=== PATIENT | female | born 1950 | race Caucasian/White ===

== ENCOUNTER 2019-12-23 13:56 | Outpatient (CLI) | payer OTHER, MEDICAID, SELFPAY ==
--- NOTE | 2019-12-23 14:24 | MM_ITS ---
WS: [id number] SCREENING DIGITAL MAMMOGRAM WITH CAD HISTORY: SCREENING COMPARISON: None available. Bilateral CC and MLO views submitted. Computer aided detection analyzed. Breast composition: The breasts are heterogeneously dense, which may obscure small masses. 6 mm asymm etry in the lateral LEFT breast posteriorly. Not definitely seen on the CC projection. There is an ad ditional area of asymmetry and increased density in the medial inferior breast. RIGHT breast is negat li. LEFT breast: Spot compression views (CC and MLO). True ML. Ultrasound to follow if abnormality persis ts. Spot compression views in the medial and lateral LEFT breast and in the inferior posterior LEFT b [place]ast. MM/[id number] IMPRESSION: BI-RADS: 0-Incomplete: Need additional imaging evaluation FOLLOW UP: Need Additional Imaging
--- NOTE | 2019-12-23 15:10 | XR_ITS ---
WS: [id number] SCREENING DEXA SCAN [facility] CLINICAL INFORMATION: POSTMENOPAUSAL STATE COMPARISON: None. FINDINGS: The L1-L4 bone mineral density measures 0.980 g/cm2. This corresponds to a T score score of -1.7 and Z score of -1.2. Left femoral neck bone mineral density measures 0.779 g/cm2. This corresponds to a T score of -1.8 an d Z score of -1.3. Right femoral neck bone mineral density measures 0.781 g/cm2. This corresponds to a T score -1.8of an d Z score of -1.3. Mean femoral neck bone mineral density measures 0.780 g/cm2. This corresponds to a T score of -1.8 an d Z score of -1.3. XR/XR DEXA axial skeleton* [id number] IMPRESSION: Osteopenia Patient's FRAX calculated 10 year probability for major osteoporotic fracture i s 11.3 % and osteoporotic hip fracture is 2.0%.
== END 2019-12-23 13:57 | disposition home or self-care (01) ==
LOC: RADSHAW 14:10
PROVIDERS: PCP Nurse Practitioner Family; Visit Provider Nurse Practitioner Family
DX: Z12.31 Encounter for screening mammogram for malignant neoplasm of breast (principal); Z78.0 Asymptomatic menopausal state
CPT/HCPCS: 77067; 77080

== ENCOUNTER 2020-11-21 14:18 | Outpatient (CLI) | payer MEDICARE, MEDICAID, SELFPAY ==
--- NOTE | 2020-11-21 14:30 | CT_ITS ---
WS: [id number] CT HEAD TECHNIQUE: Noncontrast CT of the head obtained from the skullbase to the vertex. CLINICAL INFORMATION: TREMORS OF NERVOUS SYSTEM COMPARISON: None. DLP: 992.[address] scans at [facility] use at least one of these dose optimization techniques: automat ed exposure control; mA and/or kV adjustment per patient size (includes targeted exams where dose is matched to clinical indication); or iterative reconstruction. FINDINGS: No evidence of intracranial hemorrhage or mass effect. Ventricular system and basal cisterns are turner nt. Mild small vessel changes with mild parenchymal volume loss. No extra-axial fluid collections. No evidence of mass or mass effect. Normal caban-white differentiation. Paranasal sinuses and mastoid air cells are well aerated. .Normal visualized soft tissues. CT/CT head wo con* [id number] IMPRESSION: 1. No evidence of intracranial hemorrhage or mass effect. 2. Mild small vessel changes. Mild parenchymal volume loss. 3. No acute intracranial findings.
== END 2020-11-21 14:19 | disposition home or self-care (01) ==
PROVIDERS: PCP Nurse Practitioner Family; Visit Provider Nurse Practitioner Family
DX: R25.1 Tremor, unspecified (principal)
CPT/HCPCS: 70450

== ENCOUNTER 2021-05-25 13:35 | Outpatient (CLI) | payer MEDICARE, MEDICAID, SELFPAY ==
--- NOTE | 2021-05-25 13:41 | XR_ITS ---
WS: [id number] KNEE LEFT TECHNIQUE: 2 views of the left knee CLINICAL INFORMATION: PAIN IN LEFT KNEE COMPARISON: None. FINDINGS: Mild tricompartmental arthritis. Hypertrophic patella. Soft tissue edema. Small suprapatellar effusio n. No acute fractures. XR/XR knee LT 1-2V [id number] IMPRESSION: Mild tricompartmental arthritis with soft tissue edema and a small suprapatella r effusion. Kellgren-Mariano Classification: grade 2 (minimal): definite osteophytes and p ossible joint space narrowing
== END 2021-05-25 13:36 | disposition home or self-care (01) ==
PROVIDERS: PCP Nurse Practitioner Family; Visit Provider Nurse Practitioner Family
DX: R60.0 Localized edema (principal); M13.862 Other specified arthritis, left knee
CPT/HCPCS: 73560

== ENCOUNTER 2021-07-05 13:14 | Outpatient (CLI) | payer MEDICARE, MEDICAID, SELFPAY ==
--- NOTE | 2021-07-05 13:18 | MM_ITS ---
WS: [id number] BILATERAL SCREENING DIGITAL MAMMOGRAM WITH CAD HISTORY: SCREENING COMPARISON: 12/23/2019 Bilateral CC and MLO views submitted. Computer aided detection analyzed. Breast composition: The breasts are heterogeneously dense, which may obscure small masses. No suspici ous masses, microcalcifications or architectural distortion. Scattered benign calcifications in each breast. MM/[id number] IMPRESSION: BI-RADS: 2-Benign FOLLOW UP: 1 Year Follow-up
== END 2021-07-05 13:15 | disposition home or self-care (01) ==
LOC: RADSHAW 13:17
PROVIDERS: PCP Nurse Practitioner Family; Visit Provider Nurse Practitioner Family
DX: Z12.31 Encounter for screening mammogram for malignant neoplasm of breast (principal)
CPT/HCPCS: 77067

== ENCOUNTER 2021-07-17 13:26 | Outpatient (RCR) | payer MEDICARE, MEDICAID, SELFPAY | END 2021-07-20 23:59 | disposition home or self-care (01) | LOC: SPT 13:26 | PROVIDERS: PCP Nurse Practitioner Family; Referring Provider Orthopaedic Surgery; Visit Provider Orthopaedic Surgery | DX: M17.12 Unilateral primary osteoarthritis, left knee (principal) | CPT/HCPCS: 97110; 97161 ==

== ENCOUNTER 2021-07-21 06:00 | Outpatient (RCR) | payer MEDICARE, MEDICAID, SELFPAY | END 2021-08-20 23:59 | disposition home or self-care (01) | LOC: SPT 06:00 | PROVIDERS: PCP Nurse Practitioner Family; Visit Provider Orthopaedic Surgery | DX: M17.12 Unilateral primary osteoarthritis, left knee (principal) | CPT/HCPCS: 97110 ==

== ENCOUNTER 2021-08-29 07:32 | Outpatient (CLI) | payer MEDICARE, MEDICAID, SELFPAY ==
[2021-08-29 08:27] LABS: Glucose Fasting 108 mg/dL (74-106)
[2021-08-29 10:12] LABS: Glucose 1 Hour 218 mg/dL
[2021-08-29 10:54] LABS: Glucose 2 Hour 230 mg/dL
[2021-08-29 11:56] LABS: Glucose 3 Hour 118 mg/dL
== END 2021-08-29 07:33 | disposition home or self-care (01) ==
LOC: LAB 07:37
PROVIDERS: PCP Nurse Practitioner Family; Visit Provider Nurse Practitioner Family
DX: R25.1 Tremor, unspecified (principal)
CPT/HCPCS: 36415; 82951; 82952

== ENCOUNTER 2021-11-19 11:59 | Emergency (ER) | payer MEDICARE, MEDICAID, SELFPAY ==
[2021-11-19 12:07] VITALS: BP 144/79; PULSE 89; RESP 20; TEMP 37.6; O2SAT 95; BMI 36.0
--- NOTE | 2021-11-19 12:21 | W.ED.COVID ---
Documented by User: OSMIN Frost 11/19/21 12:26 HPI - COVID General: Chief Complaint: COVID symptoms Stated Complaint: flu like symptoms Time Seen by Provider: 11/19/21 12:12 Triage information: Has fever, cough or shortness of breath. No known COVID + exposure last 14 days History of Present Illness: Patient with Covid-like symptoms. With chills last night dry cough. Slight headache. Denies any nausea vomiting diarrhea. States she said is hard to determine whether she lost taste or smell. Patient has not been vaccinated. MD complaint: has COVID symptoms COVID 19 common symptoms: positive chills, non-productive cough, body aches, headache(s) and nausea; negative throat pain COVID 19 other sytmptoms: negative chest pain Onset (ago): hour(s) COVID Results: SARS-CoV-2 RNA (RT-PCR) Pending 11/19/21 12:20 11/19/21 Review of Systems Const: Reports: chills and body aches Eyes: Denies: eye discomfort ENMT: Denies: throat pain Card: Reports: dyspnea on exertion; Denies: chest pain Resp: Reports: non-productive cough GI: Reports: nausea; Denies: abdominal pain Skin/Breast: Denies: rash Neuro: Reports: headache(s) Psych: Denies: depression or suicidal ideation Physical Exam Const: COMMON NORMALS: no acute distress, patient oriented x3 and alert HENMT: COMMON NORMALS: normocephalic HEAD & SCALP: normocephalic Eye: COMMON NORMALS: EOMs intact bilaterally Neck/C-Spine: COMMON NORMALS: no JVD Resp: COMMON NORMALS: normal respiratory effort, No use of accessory muscles and clear to auscultation bilaterally AUSCULTATION: clear to auscultation bilaterally Cardio: COMMON NORMALS: no JVD GI: INSPECTION: Yes normal to inspection Extremity: COMMON NORMALS: normal to inspection and full ROM Neuro: COMMON NORMALS: patient oriented x3 SENSORIUM/ORIENTATION: Yes alert Psych: COMMON NORMALS: mental status grossly normal Skin: COMMON NORMALS: no rashes or lesions noted GENERAL SKIN EXAM: no rashes or lesions noted Course Vital Signs: Vital signs: Vital Signs Temperature 99.7 F H 11/19/21 12:47 Pulse Rate 89 11/19/21 12:47 Respiratory Rate 20 H 11/19/21 12:47 Blood Pressure 144/79 11/19/21 12:47 Pulse Oximetry 95 11/19/21 12:47 MDM - COVID Medical Decision Making Patient presents with COVID-like symptoms that started last night. Patient complained about muscle aches and chills and dry cough and nausea. patient denies any other symptoms. Patient is unvaccinated. Testing was obtained and patient will be notified results at a later time. Patient is in no acute distress and vital signs are stable. Lab Data Laboratory Results Influenza Type A Ag Negative (Negative) 11/19/21 12:20 Influenza Type B Ag Negative (Negative) 11/19/21 12:20 SARS-CoV-2 RNA (RT-PCR) Pending 11/19/21 12:20 11/19/21 Discharge Plan Discharge Patient Disposition: Home Clinical Impression: Suspected severe acute respiratory syndrome coronavirus 2 (SARS-CoV-2) infection Condition: Stable Prescriptions: New Decadron 6 mg tablet 6 mg PO DAILY Qty: 7 0RF Zofran 4 mg tablet 4 mg PO Q8H 3 Days Qty: 9 0RF No Action hydrochlorothiazide 25 mg tablet 25 mg PO DAILY 0RF hydroxyzine HCl 10 mg tablet 10 mg PO TID PRN0RF omeprazole 40 mg capsule,delayed release(DR/EC) 40 mg PO DAILY 0RF Discharge Orders: Discharge ED (Routine); Ordered 11/19/21 Ordered By: Mukesh Hanks Referrals: Fermín,ALEJANDRA SamsonP [Primary Care Provider] - Discharge Diet: Advance as tolerated Discharge Activity: Increase activity as tolerated Patient Instructions: COVID-19 (Coronavirus Disease 2019) (ED) Activity Restrictions/Additional Instructions: Follow-up with medical provider as directed. Take medications as prescribed. Return to the ER or your medical provider if condition worsens. Please read and understand discharge instructions. If any questions ask please. Check pulse oximeter on a regular basis make sure your oxygen level stayed above 90% consistently. If they drop below 90% consistently please return to the ER or follow-up your primary care provider. Make sure you drink water consistently for any possible dehydration. Symptoms with Covid can persist up to 14 to 21 days. We encourage Covid vaccination. Coding Level of Care Code ED Internal Communications Manager for Chg Fwd Exam Comprehensive Documented by User: Clay Sanchez MD 11/20/21 12:58 HPI - COVID General: Chief Complaint: COVID symptoms Stated Complaint: flu like symptoms Time Seen by Provider: 11/19/21 12:12 COVID Results: SARS-CoV-2 RNA (RT-PCR) Pending 11/19/21 12:20 11/19/21 Course Vital Signs: Vital signs: Vital Signs Temperature 99.7 F H 11/19/21 12:47 Pulse Rate 89 11/19/21 12:47 Respiratory Rate 20 H 11/19/21 12:47 Blood Pressure 144/79 11/19/21 12:47 Pulse Oximetry 95 11/19/21 12:47 MDM - COVID Medical Decision Making Patient presents with COVID-like symptoms that started last night. Patient complained about muscle aches and chills and dry cough and nausea. patient denies any other symptoms. Patient is unvaccinated. Testing was obtained and patient will be notified results at a later time. Patient is in no acute distress and vital signs are stable. I have reviewed this documentation by Mukesh Hanks NP. Clay Sanchez MD Emergency Medicine Lab Data Laboratory Results Influenza Type A Ag Negative (Negative) 11/19/21 12:20 Influenza Type B Ag Negative (Negative) 11/19/21 12:20 SARS-CoV-2 RNA (RT-PCR) Pending 11/19/21 12:20 11/19/21 Discharge Plan Discharge Patient Disposition: Home Clinical Impression: Suspected severe acute respiratory syndrome coronavirus 2 (SARS-CoV-2) infection Condition: Stable Prescriptions: New Decadron 6 mg tablet 6 mg PO DAILY Qty: 7 0RF Zofran 4 mg tablet 4 mg PO Q8H 3 Days Qty: 9 0RF No Action hydrochlorothiazide 25 mg tablet 25 mg PO DAILY 0RF hydroxyzine HCl 10 mg tablet 10 mg PO TID PRN0RF omeprazole 40 mg capsule,delayed release(DR/EC) 40 mg PO DAILY 0RF Discharge Orders: Discharge ED (Routine); Ordered 11/19/21 Ordered By: Mukesh Hanks Referrals: Mali Kovacs FNP [Primary Care Provider] - Discharge Diet: Advance as tolerated Discharge Activity: Increase activity as tolerated Patient Instructions: COVID-19 (Coronavirus Disease 2019) (ED) Activity Restrictions/Additional Instructions: Follow-up with medical provider as directed. Take medications as prescribed. Return to the ER or your medical provider if condition worsens. Please read and understand discharge instructions. If any questions ask please. Check pulse oximeter on a regular basis make sure your oxygen level stayed above 90% consistently. If they drop below 90% consistently please return to the ER or follow-up your primary care provider. Make sure you drink water consistently for any possible dehydration. Symptoms with Covid can persist up to 14 to 21 days. We encourage Covid vaccination. Coding Level of Care Code ED Internal Communications Manager for Fredis Fwd Exam Comprehensive
[2021-11-19 12:47] VITALS: BP 144/79; PULSE 89; RESP 20; TEMP 37.6; O2SAT 95
[2021-11-19 13:12] LABS: Influenza A by IFA Negative (Negative); Influenza B by IFA Negative (Negative)
[2021-11-21 11:57] LABS: Quest SARS-CoV-2 RNA DETECTED (NOT DETECTED)
--- NOTE | 2021-11-22 14:19 | PC.NURSE ---
Notified of (+) COVID
== END 2021-11-19 12:49 | disposition home or self-care (01) ==
LOC: ER 14:05
PROVIDERS: Emergency Provider Nurse Practitioner Family; PCP Nurse Practitioner Family
DX: U07.1 COVID-19 (principal)
CPT/HCPCS: 87635; 87804; 99281

== ENCOUNTER 2021-11-27 12:06 | Inpatient (IN) | payer MEDICARE, MEDICAID, SELFPAY ==
[2021-11-27] VITALS (10 sets, daily range): BP systolic 119–162; BP diastolic 67–111; PULSE 66–84; RESP 17–22; TEMP 36.9–38.8; O2SAT 89–96; BMI 34.4
--- NOTE | 2021-11-27 12:14 | ED_ITS ---
HPI - COVID General: Chief Complaint: COVID symptoms Stated Complaint: SOB, WEAKNESS Time Seen by Provider: 11/27/21 12:06 Source: patient Mode of arrival: EMS Triage information: Has fever, cough or shortness of breath . Exposure to COVID + person last 14 days History of Present Illness: 71-year-old female presents to the emergency room complaining of severe shortness of breath. Patient has a positive Covid test 9 days ago. She has had progressively worsening shortness of breath myalgias hea dache sore throat. At home on arrival EMS found her O2 sat to be 83% on room air. Patient is conversationally dyspneic in exam room. She denies any chest or abdominal pain she has had some loose stools but that is mostly resolved. MD complaint: known COVID positive COVID 19 common symptoms: positive fever(s), chills, cough, non-productive cough, dyspnea, fatigue, body aches, headache(s), throat pain, nasal congestion and diarrhea COVID 19 other sytmptoms: positive requiring oxygen; negative chest pain Onset (ago): day(s) (9) Severity: severe Pertinent comorbid conditions: hypertension and obesity Treatment prior to arrival: acetaminophen COVID Results: SARS-CoV-2 RNA (RT-PCR) Detected (NOT DETECTED) A 11/19/21 12:20 11/19/21 Review of Systems Const: Reports: fever(s), chills, body aches and fatigue ENMT: Reports: throat pain and nasal congestion Card: Reports: dyspnea on exertion; Denies: chest pain, edema or orthopnea Resp: Reports: dyspnea, non-productive cough and chest congestion GI: Reports: diarrhea : Denies: flank pain, difficulty voiding, dysuria, urinary frequency or urinary urgency Skin/Breast: Denies: rash or pruritus Neuro: Reports: headache(s) PFSH ED PFSH: Medical History Anxiety Edema prescribed HCTZ GERD (gastroesophageal reflux disease) 4 para 4 Surgical History History of hysterectomy Family History Denies family history of CAD (coronary artery disease) Stroke Social History Smoking and tobacco status: never smoked Alcohol intake: never Substance/Drug Use: never Lives independently: Yes Physical Exam Const: GENERAL APPEARANCE: cooperative and comfortable ORIENTATION/CONSCIOUSNESS: Yes awake, Yes oriented to person, Yes oriented to place and Yes oriented to time HENMT: COMMON NORMALS: normocephalic, atraumatic, hearing grossly normal bilaterally, external ears normal, EAC's normal, TM's normal bilaterally, Normal nasal mucous membranes and turbinates present, moist oral mucous membranes and oropharynx normal HEAD & SCALP: normocephalic and atraumatic NOSE: Normal nasal mucous membranes and turbinates present EXTERNAL EAR: Yes external ears normal EXTERNAL AUDITORY CANAL: EAC's normal TYMPANIC MEMBRANE: TM's normal bilaterally Neck/C-Spine: COMMON NORMALS: no JVD Resp: EFFORT & INSPECTION: Yes labored AUSCULTATION: crackles, wheezes and diminished lung sounds Cardio: COMMON NORMALS: no JVD, regular rate, regular rhythm and No murmurs present (Cardio) RATE: regular rate RHYTHM: regular rhythm GI: COMMON NORMALS: Soft to palpation and No hepatosplenomegaly present AUSCULTATION: Yes normoactive bowel sounds PALPATION: Yes Soft to palpation, No Tenderness to palpation present (GI), No Guarding due to palpation present (GI) and Yes No hepatosplenomegaly present Extremity: COMMON NORMALS: normal to inspection, capillary refill normal, no clubbing, cyanosis or edema, no calf tenderness and no pedal edema Neuro: SENSORIUM/ORIENTATION: Yes oriented to person, Yes oriented to place and Yes oriented to time Skin: COMMON NORMALS: no rashes or lesions noted GENERAL SKIN EXAM: no rashes or lesions noted Course Vital Signs: Vital signs: Vital Signs Temperature 99.1 F 11/28/21 07:13 Pulse Rate 65 11/28/21 07:13 Respiratory Rate 18 11/28/21 07:13 Blood Pressure 114/66 11/28/21 07:13 Pulse Oximetry 89 L 11/28/21 07:13 [facility] - COVID Medical Decision Making Acute respiratory failure with hypoxia secondary to Covid pneumonitis. Labs reviewed discussed with hospitalist will admit remdesivir and dexamethasone started oxygen support. Patient initially was on 6 L for the time we are making arrangements for her admission her oxygen sat was hovering below 90 and she was changed to heated high flow oxygen Medical Records I reviewed the patient's medical records. Lab Data I reviewed the patient's lab results. : 11/28/21 04:23 11/28/21 04:23 Radiology Impressions Chest X-Ray 11/27/21 12:52 IMPRESSION: 1. Increased from a bilateral peripheral opacifications. New since 2012. Differential includes chronic interstitial lung disease and pneumonitis. If patient is positive for Covid 19 this may be due to Covid pneumonia. 2. Mild atherosclerosis aorta. Chest CTA 11/27/21 19:14 IMPRESSION: 1. No pulmonary embolus. 2. Commonly reported imaging features of (COVID-19) pneumonia are present. Other processes such as influenza pneumonia and organizing pneumonia, as can be seen with drug toxicity and connective tissue disease, can cause a similar imaging pattern. Laboratory Results WBC 4.7 10^3/uL (4.0-10.0) 11/27/21 12:47 RBC 4.79 10^6/uL (4.1-5.3) 11/27/21 12:47 Hgb 14.6 g/dL (11.5-15.3) 11/27/21 12:47 Hct 44.0 % (37.0-47.0) 11/27/21 12:47 MCV 91.9 fl (81-99) 11/27/21 12:47 MCH 30.5 pg (28.0-34.0) 11/27/21 12:47 MCHC 33.2 g/dL (30.0-36.0) 11/27/21 12:47 RDW 13.2 % (12.1-15.1) 11/27/21 12:47 Plt Count 170 10^3/cmm (130-400) 11/27/21 12:47 MPV 10.3 fL (7.4-10.4) 11/27/21 12:47 Neut % (Auto) 49.0 % 11/27/21 12:47 Lymph % (Auto) 30.6 % 11/27/21 12:47 Fleming % (Auto) 19.1 % 11/27/21 12:47 Eos % (Auto) 0.0 % 11/27/21 12:47 Baso % (Auto) 0.2 % 11/27/21 12:47 Neut # (Auto) 2.29 10^3/uL (1.8-7.7) 11/27/21 12:47 Lymph # (Auto) 1.4 10^3/uL (0.8-4.8) 11/27/21 12:47 Fleming # (Auto) 0.9 10^3/uL (0.2-0.9) 11/27/21 12:47 Eos # (Auto) 0.0 10^3/uL (0.0-0.8) 11/27/21 12:47 Baso # (Auto) 0.0 10^3/uL (0.0-0.1) 11/27/21 12:47 Nucleated RBC % (auto) 0 % 11/27/21 12:47 Nucleated RBCs # 0.0 /100WBC 11/27/21 12:47 PT 14.30 SECONDS (12.1-14.9) 11/27/21 13:13 INR 1.08 (0.8-1.2) 11/27/21 13:13 D-Dimer 0.89 ug/mIFEU (0-0.59) H 11/27/21 13:13 Specimen Type Arterial 11/27/21 13:25 Sample Site Radial, left 11/27/21 13:25 ABG pH 7.46 (7.35-7.45) H 11/27/21 13:25 ABG pCO2 33.1 mmHg (35-45) L 11/27/21 13:25 ABG pO2 60.7 mmHg (80.0-100.0) L 11/27/21 13:25 ABG HCO3 23.7 mmol/L (22-26) 11/27/21 13:25 ABG Base Excess 0.6 mmol/L (-2.0-2.0) 11/27/21 13:25 Oli Test Pos 11/27/21 13:25 Hematocrit 46.6 % (37-47) 11/27/21 13:25 O2 Delivery Device Nc 11/27/21 13:25 O2 Liters/Min 6.0 % 11/27/21 13:25 FiO2 44.0 % 11/27/21 13:25 Microsoft Architect ID Ed 11/27/21 13:25 Sodium 128 mmol/L (136-145) L 11/27/21 12:47 Potassium 3.9 mmol/L (3.5-5.1) 11/27/21 12:47 Chloride 95 mmol/L (98-107) L 11/27/21 12:47 Carbon Dioxide 21 mmol/L (22-29) L 11/27/21 12:47 Anion Gap 15.9 (5-19) 11/27/21 12:47 BUN 9 mg/dL (8-23) 11/27/21 12:47 Creatinine 0.7 mg/dL (0.5-0.9) 11/27/21 12:47 GFR Calculation 83.0 mL/min (90-130) L 11/27/21 12:47 Glucose 109 mg/dL (65-115) 11/27/21 12:47 Calculated Osmolality 265 mOsm/kg (285-295) L 11/27/21 12:47 Lactic Acid 1.3 mmol/L (0.5-2.2) 11/27/21 13:13 Calcium 6.9 mg/dL (8.5-10.5) L 11/27/21 12:47 Ferritin 920 ng/mL (15-150) H 11/27/21 12:47 Total Bilirubin 0.8 mg/dL (0.15-1.2) 11/27/21 12:47 AST 72 U/L (0-32) H 11/27/21 12:47 ALT 39 U/L (0-33) H 11/27/21 12:47 Alkaline Phosphatase 40 IU/L (35-105) 11/27/21 12:47 Creatine Kinase 51 U/L (26-192) 11/27/21 12:47 Troponin T Gen 5 ng/L 11 ng/L (0-10) H 11/27/21 12:47 C-Reactive Protein 57.9 mg/L (0.0-4.9) H 11/27/21 12:47 NT-Pro-B Natriuret Pep 287 pg/mL (0-125) H 11/27/21 12:47 Total Protein 5.4 g/dL (6.6-8.7) L 11/27/21 12:47 Albumin 2.9 g/dL (3.5-5.2) L 11/27/21 12:47 Globulin 2.5 g/dL (1.3-4.6) 11/27/21 12:47 Procalcitonin 0.22 ng/mL (0-0.5) 11/27/21 12:47 SARS-CoV-2 RNA (RT-PCR) Detected (NOT DETECTED) A 11/19/21 12:20 11/19/21 Discharge Plan Discharge Patient Disposition: Admitted As Inpatient Admit Provider: Kacie Rosado Clinical Impression: Pneumonia due to COVID-19 virus, Acute respiratory failure with hypoxia Condition: Stable Coding Level of Care Code ED Lithographic Stripper for Fredis Garza
--- NOTE | 2021-11-27 12:52 | ECG_ITS ---
[facility] Test Date: 2021-11-27 Pat Name: Peggy Villalobos Department: Room: Gender: Female Medical Registrar: : 1950 Requested By: Ren Wong Order Number: [id number] Beba MD: Jenn Santillan M.D. Measurements Intervals Yarnell Rate: 81 P: 49 SC: 145 QRS: -33 QRSD: 102 T: -11 QT: 379 QTc: 440 Interpretive Statements SINUS RHYTHM LEFT AXIS DEVIATION [QRS AXIS < -30] PATTERN CONSISTENT WITH PULMONARY DISEASE MODERATE T-WAVE ABNORMALITY, CONSIDER ANTERIOR ISCHEMIA [-0.1+ mV T-WAVE IN V3/V4] No previous ECG available for comparison Electronically Signed On 11-28-2021 5:09:29 TREATING MACHINE OPERATOR by Jenn Santillan M.D. [id number] f
--- NOTE | 2021-11-27 12:52 | XR_ITS ---
WS: [id number] PORTABLE CHEST HISTORY: hypoxia COMPARISON: 07/13/2013 Bilateral areas of interstitial thickening and increased opacification. Most significant on the LEFT. No pleural effusion or pneumothorax. Cardiac size: Normal. Mediastinum/Aorta: Mild atherosclerosis aorta. No osseous abnormality seen. XR/XR chest 1V portable [id number] IMPRESSION: 1. Increased from a bilateral peripheral opacifications. New since 2012. Diffe rential includes chronic interstitial lung disease and pneumonitis. If patient is positive for Covid 19 this may be due to Covid pneumonia. 2. Mild atherosclerosis aorta.
[2021-11-27] MEDS: dexamethasone 4 mg/mL INJ 6 MG IVP (13:02)
[2021-11-27 13:34] LABS: ABG PCO2 33.1 mmHg (35-45); ABG PH Result 7.46 (7.35-7.45); Arterial Blood Gas Hematocrit 46.6 % (37-47); Base Excess ABG 0.6 mmol/L (-2.0-2.0); Blood Gas Allen Test Pos; Blood Gas Sample Type Arterial; HCO3 ABG 23.7 mmol/L (22-26); PO2 ABG 60.7 mmHg (80.0-100.0)
[2021-11-27 13:35] LABS: Blood Gas Operator Identificat ED; Blood Gas Sample Site Radial, left; Oxygen Device NC
[2021-11-27 13:40] LABS: D Dimer 0.89 ug/mIFEU (0-0.59)
[2021-11-27 13:42] LABS: Lactic Sepsis W/Reflex 1.3 mmol/L (0.5-2.2)
[2021-11-27 13:43] LABS: Basophils % 0.2 %; Hemoglobin 14.6 g/dL (11.5-15.3); Lymphocytes # 1.4 10^3/uL (0.8-4.8); Lymphocytes % 30.6 %; Mean Corpuscular HGB Conc 33.2 g/dL (30.0-36.0); Mean Corpuscular Hemoglobin 30.5 pg (28.0-34.0); Mean Corpuscular Volume 91.9 fl (81-99); Mean Platelet Volume 10.3 fL (7.4-10.4); Monocytes # 0.9 10^3/uL (0.2-0.9); Monocytes % 19.1 %; Neutrophils # 2.29 10^3/uL (1.8-7.7); Nucleated Red Blood Cells % 0 %; Platelet Count 170 10^3/cmm (130-400); Red Blood Count 4.79 10^6/uL (4.1-5.3); Red Cell Distribution Width 13.2 % (12.1-15.1); White Blood Count 4.7 10^3/uL (4.0-10.0)
[2021-11-27] MEDS: remdesivir 200 MG in sodium chloride 0.9% (100 ml) 60 ML 100 MG IV (13:58)
[2021-11-27 14:05] LABS: Alanine Aminotransferase 39 U/L (0-33); Albumin Level 2.9 g/dL (3.5-5.2); Alkaline Phosphatase 40 IU/L (35-105); Aspartate Amino Transferase 72 U/L (0-32); Blood Urea Nitrogen 9 mg/dL (8-23); C Reactive Protein 57.9 mg/L (0.0-4.9); Calcium 6.9 mg/dL (8.5-10.5); Carbon Dioxide 21 mmol/L (22-29); Chloride 95 mmol/L (98-107); Globulin 2.5 g/dL (1.3-4.6); Glucose 109 mg/dL (65-115); Osmolality Calculated 265 mOsm/kg (285-295); Sodium 128 mmol/L (136-145); Total Bilirubin 0.8 mg/dL (0.15-1.2); Total Protein 5.4 g/dL (6.6-8.7)
[2021-11-27 14:07] LABS: Anion Gap 15.9 (5-19); Potassium 3.9 mmol/L (3.5-5.1)
[2021-11-27 14:11] LABS: Procalcitonin 0.22 ng/mL (0-0.5)
--- NOTE | 2021-11-27 14:38 | PC.NURSE ---
BEDSIDE COMMODE PROVIDED TO PATIENT. PATIENT ABLE TO TRANSFER INDEPENDENTLY.
--- NOTE | 2021-11-27 16:59 | PM.HP ---
Providers/Chief Complaint Admitting Physician: Kacie Rosado Primary Care Provider: OSMIN Tolentino Chief Complaint: SOB, WEAKNESS History of Present Illness Peggy Villalobos is a 71 year old female who presented to the emergency room with increasing respiratory symptoms and malaise from COVID. She started having symptoms between. She was seen in the emergency room on November 19. Covid testing was done and PCR ultimately came back positive. She did receive prescription for dexamethasone and Zofran which she indicates that she took. Her symptoms have progressively worsened over time despite this. She has been taking some vitamins such as zinc and vitamin D. Denies taking any other new medicines for management of her symptoms. She has become progressively more short of breath, experiencing dizziness and increasing malaise as well as having difficulty attending to her activities of daily living prompting the visit to the emergency room today. On arrival via EMS oxygen saturations on 6 L bnc were in the upper 80s. Patient was transitioned to heated high flow at 5 L, 50% with improvement in oxygen saturations though they remain at the lower end. Chest x-ray showed bilateral opacities consistent with known COVID-19. CRP was around 60 and ferritin was 900. With degree of oxygen requirement and elevation in inflammatory markers she is being admitted for further treatment and evaluation as indicated. She has already been started on remdesivir and given some IV dexamethasone. She has not received Covid vaccination. She denies any GI symptoms beyond poor appetite. She remains febrile at times. No reports of any chest pain. She has not had any syncopal episodes Review of Systems Const: Reports: fever(s), chills, body aches, change in appetite, fatigue and malaise Eyes: Denies: change in vision ENMT: Reports: throat pain, dry mouth, nasal congestion and other (loss of taste and smell); Denies: sinus pain Card: Reports: chest pain, lightheadedness and dyspnea on exertion; Denies: palpitations, edema, syncope, orthopnea or acrocyanosis Resp: Reports: dyspnea, productive cough, non-productive cough, wheezing and chest congestion; Denies: pain on inspiration or hemoptysis GI: Denies: abdominal pain, nausea, vomiting, diarrhea, constipation or hematochezia : Denies: difficulty voiding or urinary frequency Musc: Reports: muscle weakness; Denies: joint swelling, joint redness or joint warmth Skin/Breast: Denies: rash, pruritus or sores Neuro: Reports: headache(s), weakness in extremities (general rather than focal), difficulty walking (due to weakness and shortness of breath), dizziness and difficulty communicating thoughts; Denies: numbness in extremities or involuntary movements Psych: Reports: anxiety Jeffrey/Lymph: Denies: easy bruising or easy bleeding Medications/Allergies Home Medications Medication Instructions Recorded Confirmed Last Taken Type hydrochlorothiazide 25 mg tablet 25 mg PO DAILY 06/13/21 11/27/21 Unknown History hydroxyzine HCl 10 mg tablet 10 mg PO TID PRN 06/13/21 11/27/21 Unknown History omeprazole 40 mg capsule,delayed 40 mg PO DAILY PRN 06/13/21 11/27/21 Unknown History release cholecalciferol (vitamin D3) 125 125 mcg PO DAILY 11/27/21 11/27/21 Unknown History mcg (5,000 unit) tablet (Vitamin D3) potassium gluconate 500 mg (83 mg) 500 mg PO DAILY 11/27/21 11/27/21 Unknown History tablet zinc 50 mg tablet 50 mg PO DAILY 11/27/21 11/27/21 Unknown History Allergies Allergy/AdvReac Type Severity Reaction Status Date / Time No Known Allergies Allergy Verified 06/13/21 14:19 PFSH Acute PFSH: Medical History (Updated 11/27/21 @ 19:33 by Kacie Rosado MD) Anxiety Edema prescribed HCTZ GERD (gastroesophageal reflux disease) 4 para 4 Surgical History (Updated 11/27/21 @ 18:54 by Kacie Rosado MD) History of hysterectomy Family History (Updated 11/27/21 @ 18:55 by Kacie Rosado MD) Denies family history of CAD (coronary artery disease) Stroke Social History (Updated 11/27/21 @ 18:55 by Kacie Rosado MD) Smoking and tobacco status: never smoked Alcohol intake: never Substance/Drug Use: never Lives independently: Yes Vitals/I&O/Wt Last Vital Signs Temp 101.8 F H 11/27/21 12:22 Pulse 73 11/27/21 16:47 Resp 18 11/27/21 16:47 BP 162/111 11/27/21 16:47 Pulse Ox 92 11/27/21 16:47 Weight last 48 hrs Weight 99.79 kg Physical Exam Narrative: EXAM NARRATIVE: Constitutional: alert and able to answer questions after thinking about answers but looks sleepy, ill appearing HEENT: normocephalic. conjunctiva injected, large nasal prongs of heated high flow in place so did not visualize nasal mucosa, dry oral mucosal membranes Neck: supple Respiratory: scattered wheezes and crackles, tachypnea, pauses to complete sentences, intercostal retractions noted, mild Cardiovascular: regular rhythm, no murmurs, gallops or rubs noted, no acrocyanosis Abdomen: soft, non tender, positive bowel sounds Extremities: no pitting edema noted, no calf tenderness Skin: dry, no rashes or bruising, face is erythematous Neuro: face symmetric, speech clear though slow, moves all extremities, no involuntary movements Psych: cooperative, flat affect Data : 11/27/21 12:47 11/27/21 12:47 Other Labs: Radiology Impressions Chest X-Ray 11/27/21 12:52 IMPRESSION: 1. Increased from a bilateral peripheral opacifications. New since 2012. Differential includes chronic interstitial lung disease and pneumonitis. If patient is positive for Covid 19 this may be due to Covid pneumonia. 2. Mild atherosclerosis aorta. Laboratory Results WBC 4.7 10^3/uL (4.0-10.0) 11/27/21 12:47 RBC 4.79 10^6/uL (4.1-5.3) 11/27/21 12:47 Hgb 14.6 g/dL (11.5-15.3) 11/27/21 12:47 Hct 44.0 % (37.0-47.0) 11/27/21 12:47 MCV 91.9 fl (81-99) 11/27/21 12:47 MCH 30.5 pg (28.0-34.0) 11/27/21 12:47 MCHC 33.2 g/dL (30.0-36.0) 11/27/21 12:47 RDW 13.2 % (12.1-15.1) 11/27/21 12:47 Plt Count 170 10^3/cmm (130-400) 11/27/21 12:47 MPV 10.3 fL (7.4-10.4) 11/27/21 12:47 Neut % (Auto) 49.0 % 11/27/21 12:47 Lymph % (Auto) 30.6 % 11/27/21 12:47 Boyle % (Auto) 19.1 % 11/27/21 12:47 Eos % (Auto) 0.0 % 11/27/21 12:47 Baso % (Auto) 0.2 % 11/27/21 12:47 Neut # (Auto) 2.29 10^3/uL (1.8-7.7) 11/27/21 12:47 Lymph # (Auto) 1.4 10^3/uL (0.8-4.8) 11/27/21 12:47 Boyle # (Auto) 0.9 10^3/uL (0.2-0.9) 11/27/21 12:47 Eos # (Auto) 0.0 10^3/uL (0.0-0.8) 11/27/21 12:47 Baso # (Auto) 0.0 10^3/uL (0.0-0.1) 11/27/21 12:47 Nucleated RBC % (auto) 0 % 11/27/21 12:47 Nucleated RBCs # 0.0 /100WBC 11/27/21 12:47 PT 14.30 SECONDS (12.1-14.9) 11/27/21 13:13 INR 1.08 (0.8-1.2) 11/27/21 13:13 D-Dimer 0.89 ug/mIFEU (0-0.59) H 11/27/21 13:13 Specimen Type Arterial 11/27/21 13:25 Sample Site Radial, left 11/27/21 13:25 ABG pH 7.46 (7.35-7.45) H 11/27/21 13:25 ABG pCO2 33.1 mmHg (35-45) L 11/27/21 13:25 ABG pO2 60.7 mmHg (80.0-100.0) L 11/27/21 13:25 ABG HCO3 23.7 mmol/L (22-26) 11/27/21 13:25 ABG Base Excess 0.6 mmol/L (-2.0-2.0) 11/27/21 13:25 Loi Test Pos 11/27/21 13:25 Hematocrit 46.6 % (37-47) 11/27/21 13:25 O2 Delivery Device Nc 11/27/21 13:25 O2 Liters/Min 6.0 % 11/27/21 13:25 FiO2 44.0 % 11/27/21 13:25 Maintenance Shop Technician ID Ed 11/27/21 13:25 Sodium 128 mmol/L (136-145) L 11/27/21 12:47 Potassium 3.9 mmol/L (3.5-5.1) 11/27/21 12:47 Chloride 95 mmol/L (98-107) L 11/27/21 12:47 Carbon Dioxide 21 mmol/L (22-29) L 11/27/21 12:47 Anion Gap 15.9 (5-19) 11/27/21 12:47 BUN 9 mg/dL (8-23) 11/27/21 12:47 Creatinine 0.7 mg/dL (0.5-0.9) 11/27/21 12:47 GFR Calculation 83.0 mL/min (90-130) L 11/27/21 12:47 Glucose 109 mg/dL (65-115) 11/27/21 12:47 Calculated Osmolality 265 mOsm/kg (285-295) L 11/27/21 12:47 Lactic Acid 1.3 mmol/L (0.5-2.2) 11/27/21 13:13 Calcium 6.9 mg/dL (8.5-10.5) L 11/27/21 12:47 Ferritin 920 ng/mL (15-150) H 11/27/21 12:47 Total Bilirubin 0.8 mg/dL (0.15-1.2) 11/27/21 12:47 AST 72 U/L (0-32) H 11/27/21 12:47 ALT 39 U/L (0-33) H 11/27/21 12:47 Alkaline Phosphatase 40 IU/L (35-105) 11/27/21 12:47 Creatine Kinase 51 U/L (26-192) 11/27/21 12:47 Troponin T Gen 5 ng/L 11 ng/L (0-10) H 11/27/21 12:47 C-Reactive Protein 57.9 mg/L (0.0-4.9) H 11/27/21 12:47 NT-Pro-B Natriuret Pep 287 pg/mL (0-125) H 11/27/21 12:47 Total Protein 5.4 g/dL (6.6-8.7) L 11/27/21 12:47 Albumin 2.9 g/dL (3.5-5.2) L 11/27/21 12:47 Globulin 2.5 g/dL (1.3-4.6) 11/27/21 12:47 Procalcitonin 0.22 ng/mL (0-0.5) 11/27/21 12:47 Micro: Microbiology 11/27/21 14:21 Blood Culture - Preliminary Blood SPECIMEN COLLECTED 11/27/21 13:13 Blood Culture - Preliminary Blood SPECIMEN COLLECTED A&P Assessment and plan (1) Pneumonia due to COVID-19 virus: Dexamethasone was stared on 11/19 at time of ED visit but finished course, restarted IV on 11/27 Remdesivir started 11/27 Continue heated high flow, adjusting as needed Respiratory therapy to follow Pulmonary toilet Monitor inflammatory markers/labs Pro calcitonin 0.22 CRP 57.9 Ferritin 920 Blood cultures were collected D dimer 0.89 CTA chest ordered Vitamin C, vitamin D, zinc Status: Acute (2) Hypoxemia: Secondary to COVID Status: Acute (3) COVID-19 vaccination not done: Status: Acute (4) Elevated blood pressure reading without diagnosis of hypertension: On HCTZ chronically for edema per patient; denies history of high blood pressure or other chronic cardiac issues; one value elevated thus far and patient is uncomfortable with heated high flow nasal prongs and anxious. Continue home HCTZ for now Monitor blood pressures for need to adjust medications Status: Acute Plan Inpatient admission Protonix for GI prophylaxis Lovenox for DVT prophylaxis Continue home hydroxyzine for anxiety Supportive care otherwise Currently anticipate discharge home, possibly with oxygen therapy, however it will ultimately depend on clinical course Findings, concerns and plans, including treatment with Remdesivir were discussed with patient and she was given an opportunity to ask questions Full code Attestations Medical Necessity Statement*: Anticipate stay greater than 2 midnights in patient with covid, requiring oxygen and other care as noted above. At high risk of rapid clinical decline given current oxygen requirements Coding Level of Care Code Acute Project Manager for g Fwd Diagnoses Pneumonia due to COVID-19 virus U07.1; J12.82 Hypoxemia R09.02 COVID-19 vaccination not done Z28.9 Elevated blood pressure reading without diagnosis of hypertension R03.0
[2021-11-27 17:59] LABS: INR 1.08 (0.8-1.2)
[2021-11-27 18:21] LABS: Troponin T (5th) Once 11 ng/L (0-10)
[2021-11-27 18:28] LABS: Creatine Phosphokinase 51 U/L (26-192); Ferritin 920 ng/mL (15-150); NT Pro B Type Natriuretic Pept 287 pg/mL (0-125)
[2021-11-27] MEDS: enoxaparin 40 mg/0.4 mL Syringe SUBCUT (18:53)
[2021-11-27] MEDS: famotidine 20 mg Tablet PO (18:54)
[2021-11-27] MEDS: ascorbic acid 500 mg Tablet 1000 MG PO (18:54)
--- NOTE | 2021-11-27 19:14 | CTR_ITS ---
PROCEDURE INFORMATION: Exam: CTA Chest With Contrast Exam date and time: 11/27/2021 7:14 PM Age: 71 years old Clinical indication: Shortness of breath; Patient HX: Coid+ w worsening SOB and elev d-dimer; Additional info: Hypoxemia, covid, elevated d dimer, near syncope TECHNIQUE: Imaging protocol: Computed tomographic angiography of the chest with contrast. 3D rendering (Not supervised by radiologist): MIP and/or 3D reconstructed images were created by the technologist. Radiation optimization: All CT scans at this facility use at least one of these dose optimization techniques: automated exposure control; mA and/or kV adjustment per patient size (includes targeted exams where dose is matched to clinical indication); or iterative reconstruction. Contrast material: OMNI 350; Contrast volume: 61 ml; Contrast route: INTRAVENOUS (IV); COMPARISON: No relevant prior studies available. RADIATION DOSE METRICS: Total DLP (mGy-cm): 490.1 FINDINGS: Pulmonary arteries: Normal. No pulmonary emboli. Aorta: Unremarkable. No aortic aneurysm. No aortic dissection. Other arteries: Mild diffuse atherosclerotic disease is present. Lungs: Tiny calcified granulomas are seen scattered throughout both lungs. There is ground-glass opacities scattered throughout both lungs in a predominantly peripheral distribution. Pleural spaces: Unremarkable. No pneumothorax. No pleural effusion. Heart: Mildly enlarged heart. Coronary atherosclerotic calcifications seen. No pericardial effusion. Lymph nodes: Unremarkable. No enlarged lymph nodes. Diaphragm: A small hiatal hernia is present. Bones/joints: Degenerative changes of the spine seen. Soft tissues: Unremarkable. CT/CT angio chest PE protcl [id number] IMPRESSION: 1. No pulmonary embolus. 2. Commonly reported imaging features of (COVID-19) pneumonia are present. Other processes such as influenza pneumonia and organizing pneumonia, as can be seen with drug toxicity and connective tissue disease, can cause a similar imaging pattern.
[2021-11-27] MEDS: iohexol 350 mg/mL 100 mL Btl IV (19:59)
[2021-11-28] VITALS (9 sets, daily range): BP systolic 109–121; BP diastolic 62–75; PULSE 64–78; RESP 16–24; TEMP 36.6–37.3; O2SAT 88–93
[2021-11-28 06:07] LABS: Hematocrit 45.2 % (37.0-47.0); Lymphocytes % 40.5 %; Mean Corpuscular HGB Conc 33.2 g/dL (30.0-36.0); Mean Corpuscular Hemoglobin 30.2 pg (28.0-34.0); Mean Corpuscular Volume 90.9 fl (81-99); Mean Platelet Volume 10.3 fL (7.4-10.4); Monocytes # 0.4 10^3/uL (0.2-0.9); Monocytes % 16.7 %; Neutrophils # 1.05 10^3/uL (1.8-7.7); Neutrophils % 41.6 %; Nucleated Red Blood Cells % 0 %; Platelet Count 161 10^3/cmm (130-400); Red Blood Count 4.97 10^6/uL (4.1-5.3); Red Cell Distribution Width 13.1 % (12.1-15.1); White Blood Count 2.5 10^3/uL (4.0-10.0)
[2021-11-28 06:29] LABS: Alanine Aminotransferase 35 U/L (0-33); Alkaline Phosphatase 39 IU/L (35-105); Blood Urea Nitrogen 11 mg/dL (8-23); C Reactive Protein 82.2 mg/L (0.0-4.9); Calcium 7.9 mg/dL (8.5-10.5); Carbon Dioxide 24 mmol/L (22-29); Chloride 103 mmol/L (98-107); Globulin 2.6 g/dL (1.3-4.6); Glomerular Filtration Rate 122.3 mL/min (90-130); Glucose 138 mg/dL (65-115); Magnesium 2.5 mg/dL (1.7-2.3); Osmolality Calculated 284 mOsm/kg (285-295); Phosphorus 3.1 mg/dL (2.5-4.5); Sodium 136 mmol/L (136-145); Total Bilirubin 0.6 mg/dL (0.15-1.2); Total Protein 5.6 g/dL (6.6-8.7)
[2021-11-28 07:00] LABS: Anion Gap 13.5 (5-19); Potassium 4.5 mmol/L (3.5-5.1)
[2021-11-28 07:01] LABS: Aspartate Amino Transferase 55 U/L (0-32)
[2021-11-28] MEDS: ascorbic acid 500 mg Tablet 1000 MG PO ×2 (08:46→18:22)
[2021-11-28] MEDS: cholecalciferol (vitamin D3) 1,000 unit Tablet 2000 UNIT PO (08:46)
[2021-11-28] MEDS: pantoprazole DR 40 mg Tablet PO (08:47)
[2021-11-28] MEDS: hydroCHLOROthiazide 25 mg Tablet PO (08:47)
[2021-11-28] MEDS: zinc gluconate 50 mg Tablet PO (08:47)
[2021-11-28] MEDS: remdesivir 100 MG in sodium chloride 0.9% (100 ml) 80 ML IV (16:00)
[2021-11-28] MEDS: dexamethasone 4 mg/mL INJ 6 MG IVP (16:00)
--- NOTE | 2021-11-28 16:04 | P.PN_ITS ---
Subjective Subjective: Patient denies shortness of breath or chest pain. She complains of feeling floaty . Vitals/I&O/Wt Last Vital Signs Temp 97.9 F 11/28/21 12:00 Pulse 77 11/28/21 15:52 Resp 24 H 11/28/21 15:52 BP 120/75 11/28/21 12:00 Pulse Ox 91 11/28/21 15:52 11/28/21 11/28/21 11/28/21 06:59 14:59 22:59 Intake Total 100 / 100 Output Total 880 / 1220 Balance -880 / -1120 100 / 100 Weight last 48 hrs Weight 99.79 kg Weight 99.79 kg Physical Exam Narrative: Patient is a obese white female with no acute distress at time of exam although she appears to be short of breath while talking to me. Heart regular on the slightly tachycardic side. Lungs diminished with crackles heard at the bilateral bases Abdomen obese soft nontender nondistended positive bowel sounds no hepatosplenomegaly Extremities no pitting edema Data : 11/28/21 04:23 11/28/21 04:23 Micro: Microbiology 11/27/21 14:21 Blood Culture - Preliminary Blood NEGATIVE TO DATE 11/27/21 13:13 Blood Culture - Preliminary Blood NEGATIVE TO DATE 11/27/21 14:00 Gram Stain - Final Sputum - Expectorated Sputum Sputum Culture - Preliminary A&P Assessment and plan (1) Pneumonia due to COVID-19 virus: Dexamethasone was stared on 11/19 at time of ED visit but finished course, restarted IV on 11/27 Remdesivir started 11/27 Pt was on heated high flow last night, was on 6 L at 85%, asked to be returned to [facility] Respiratory therapy to follow Pulmonary toilet Monitor inflammatory markers/labs Pro calcitonin 0.22 CRP 57.9 Ferritin 920 Blood cultures were collected D dimer 0.89 CTA chest ordered Vitamin C, vitamin D, zinc Status: Acute (2) Hypoxemia: Secondary to COVID Status: Acute (3) COVID-19 vaccination not done: Status: Acute (4) Elevated blood pressure reading without diagnosis of hypertension: On HCTZ chronically for edema per patient; denies history of high blood pressure or other chronic cardiac issues; one value elevated thus far and patient is uncomfortable with heated high flow nasal prongs and anxious. Continue home HCTZ for now Monitor blood pressures for need to adjust medications Status: Acute Plan Protonix for GI prophylaxis Lovenox for DVT prophylaxis Continue home hydroxyzine for anxiety Supportive care otherwise Full code Attestations Medical Necessity Statement*: Acute respiratory failure secondary hypoxia requiring high flow nasal cannula Coding Level of Care Code Acute Wire Saw Operator for Chg Fwd Diagnoses Pneumonia due to COVID-19 virus U07.1; J12.82 Hypoxemia R09.02 COVID-19 vaccination not done Z28.9 Elevated blood pressure reading without diagnosis of hypertension R03.0
[2021-11-28 17:18] LABS: Bacillus cereus group Not Detected (NOT DETECT); Bacillus subtillis group Not Detected (NOT DETECT); Corynebacterium Not Detected (NOT DETECT); Cutibacterium acnes (P.acnes) Not Detected (NOT DETECT); Enterococcus Not Detected (NOT DETECT); Enterococcus faecalis Not Detected (NOT DETECT); Enterococcus faecium Not Detected (NOT DETECT); Lactobacillus species Not Detected (NOT DETECT); Listeria Not Detected (NOT DETECT); Listeria monocytogenes Not Detected (NOT DETECT); Micrococcus Not Detected (NOT DETECT); Pan Candida Not Detected (NOT DETECT); Pan Gram-Negative Not Detected (NOT DETECT); Staphylococcus epidermidis Not Detected (NOT DETECT); Staphylococcus lugdunensis Not Detected (NOT DETECT); Staphylococcus species Detected (NOT DETECT); Streptococcus agalactiae Not Detected (NOT DETECT); Streptococcus anginosus group Not Detected (NOT DETECT); Streptococcus pneumoniae Not Detected (NOT DETECT); Streptococcus pyogenes Not Detected (NOT DETECT); Streptococcus species Not Detected (NOT DETECT); mecA Not Detected (NOT DETECT); mecC Not Detected (NOT DETECT)
[2021-11-28] MEDS: enoxaparin 40 mg/0.4 mL Syringe SUBCUT (18:22)
[2021-11-29] VITALS (12 sets, daily range): BP systolic 112–144; BP diastolic 60–90; PULSE 62–79; RESP 17–24; TEMP 36.4–36.8; O2SAT 87–93
[2021-11-29 05:59] LABS: Partial Thromboplastin Time 35.1 SECONDS (23.9-36.7)
[2021-11-29] MEDS: cholecalciferol (vitamin D3) 1,000 unit Tablet 2000 UNIT PO (08:58)
[2021-11-29] MEDS: zinc gluconate 50 mg Tablet PO (08:59)
[2021-11-29] MEDS: fluticasone nasal spray 16gm Btl 2 SPRAY NASAL (08:59)
[2021-11-29] MEDS: ascorbic acid 500 mg Tablet 1000 MG PO ×2 (08:59→18:04)
[2021-11-29] MEDS: pantoprazole DR 40 mg Tablet PO (08:59)
[2021-11-29] MEDS: hydroCHLOROthiazide 25 mg Tablet PO (08:59)
[2021-11-29] MEDS: LORazepam 0.5 mg Tablet PO ×2 (10:15→20:42)
[2021-11-29] MEDS: lactulose oral liq 20 gm/30 mL UDC 10 GM PO (10:15)
--- NOTE | 2021-11-29 12:18 | P.PN_ITS ---
Subjective Subjective: This morning patient was stating that she is feeling anxious and wants to return home I did have a lengthy discussion with the patient and her daughter She is off isolation Her daughter can visit her today Charge nurse updated Afebrile No overnight events Negative fluid balance Vitals/I&O/Wt Last Vital Signs Temp 97.9 F 11/29/21 11:25 Pulse 69 11/29/21 11:25 Resp 18 11/29/21 11:25 BP 130/79 11/29/21 11:25 Pulse Ox 87 L 11/29/21 11:25 11/28/21 11/29/21 11/29/21 22:59 06:59 14:59 Intake Total 100 / 200 240 / 240 Output Total 1040 / 1040 780 / 1820 150 / 150 Balance -940 / -840 -780 / -1620 90 / 90 Weight last 48 hrs Weight 99.79 kg Weight 99.79 kg Physical Exam Narrative: Patient resting in her bed Heated high flow 35 L, 68% FiO2 Bilateral breath sound with rhonchi at the bases Abdomen distended EOMI, PERRLA Fatigue lethargic S1, S2 No signs of edema No joint swelling Data : 11/28/21 04:23 11/28/21 04:23 Micro: Microbiology 11/27/21 14:00 Gram Stain - Final Sputum - Expectorated Sputum Sputum Culture - Final 11/27/21 14:21 Blood Culture - Preliminary Blood Staphylococcus sp coag neg 11/27/21 13:13 Blood Culture - Preliminary Blood NEGATIVE TO DATE A&P Assessment and plan (1) Acute respiratory failure with hypoxia: Status: Acute (2) COVID-19 vaccination not done: Status: Acute (3) Hypoxemia: Status: Acute (4) Pneumonia due to COVID-19 virus: Status: Acute Plan COVID-19 related hypoxia Currently on 68% FiO2 heated high flow 35 L, gradually wean off oxygen, Updated patient and her daughter Continue multivitamins DVT prophylaxis Lovenox Hypertension: Continue hydrochlorothiazide For anxiety added Ativan 3 times a day as needed For constipation lactulose added on daily as needed basis Regular diet She lives alone in [place] [facility] [place] Will get PT eval to avoid deconditioning Attestations Medical Necessity Statement*: Continue medical management Time Spent in Patient Care: 15mins Coding Level of Care Code Acute Grapple Operator for Chg Fwd Diagnoses Acute respiratory failure with hypoxia J96.01 COVID-19 vaccination not done Z28.9 Hypoxemia R09.02 Pneumonia due to COVID-19 virus U07.1; J12.82
[2021-11-29] MEDS: dexamethasone 4 mg/mL INJ 6 MG IVP (15:53)
[2021-11-29] MEDS: remdesivir 100 MG in sodium chloride 0.9% (100 ml) 80 ML IV (15:53)
[2021-11-29] MEDS: enoxaparin 40 mg/0.4 mL Syringe SUBCUT (18:04)
[2021-11-30] VITALS (12 sets, daily range): BP systolic 129–138; BP diastolic 74–84; PULSE 70–87; RESP 16–22; TEMP 37–37.1; O2SAT 89–94
[2021-11-30 05:35] LABS: Hematocrit 41.7 % (37.0-47.0); Hemoglobin 14.4 g/dL (11.5-15.3); Lymphocytes # 0.9 10^3/uL (0.8-4.8); Lymphocytes % 15.8 %; Mean Corpuscular HGB Conc 34.5 g/dL (30.0-36.0); Mean Corpuscular Hemoglobin 30.3 pg (28.0-34.0); Mean Corpuscular Volume 87.8 fl (81-99); Mean Platelet Volume 10.1 fL (7.4-10.4); Monocytes # 0.5 10^3/uL (0.2-0.9); Monocytes % 9.5 %; Neutrophils # 4.06 10^3/uL (1.8-7.7); Nucleated Red Blood Cells % 0 %; Platelet Count 211 10^3/cmm (130-400); Red Blood Count 4.75 10^6/uL (4.1-5.3); Red Cell Distribution Width 12.8 % (12.1-15.1); White Blood Count 5.5 10^3/uL (4.0-10.0)
[2021-11-30 06:00] LABS: Anion Gap 14.2 (5-19); Blood Urea Nitrogen 16 mg/dL (8-23); Carbon Dioxide 25 mmol/L (22-29); Chloride 101 mmol/L (98-107); Glomerular Filtration Rate 122.3 mL/min (90-130); Glucose 160 mg/dL (65-115); Osmolality Calculated 287 mOsm/kg (285-295); Potassium 4.2 mmol/L (3.5-5.1); Sodium 136 mmol/L (136-145)
[2021-11-30] MEDS: ipratropium-albuterol 3 mL Neb INHALATION (09:14)
--- NOTE | 2021-11-30 09:31 | PM.PN ---
Subjective Subjective: Patient is stating she has noticed improvement in her energy and wakefulness, she has adequate urine output, appetite is moderate no fever or leukocytosis Heated high flow FiO2 80%, 40 L Vitals/I&O/Wt Last Vital Signs Temp 98.7 F 11/30/21 07:17 Pulse 87 11/30/21 09:16 Resp 22 H 11/30/21 09:16 BP 130/84 11/30/21 07:17 Pulse Ox 94 11/30/21 09:16 11/29/21 11/30/21 11/30/21 22:59 06:59 14:59 Intake Total 340 / 580 240 / 820 120 / 120 Output Total 460 / 610 400 / 400 Balance 340 / 430 -220 / 210 -280 / -280 Physical Exam Narrative: Patient was sitting in her bed Saturating well Heated high flow No active chest pain or shortness of breath No conversational dyspnea Did not appear anxious today Looks euvolemic Abdomen soft Bilateral breath sound with rhonchi at the bases S1, S2 Nonfocal neuro exam Data : 11/30/21 04:10 11/30/21 04:10 Micro: Microbiology 11/27/21 14:21 Blood Culture - Preliminary Blood Staphylococcus sp coag neg 11/27/21 14:00 Gram Stain - Final Sputum - Expectorated Sputum Sputum Culture - Final A&P Assessment and plan (1) Acute respiratory failure with hypoxia: Status: Acute (2) COVID-19 vaccination not done: Status: Acute (3) Hypoxemia: Status: Acute (4) Pneumonia due to COVID-19 virus: Status: Acute Plan COVID-19 related hypoxia Wean down oxygen slowly Continue Decadron, remdesivir, will add Actemra 1 dose today for worsening of hypoxia Continue multivitamins Patient will need continued hospitalization Attestations Medical Necessity Statement*: Continue medical management Time Spent in Patient Care: 15min Coding Level of Care Code Acute Manager Packaging for [facility] Fwd Diagnoses Acute respiratory failure with hypoxia J96.01 COVID-19 vaccination not done Z28.9 Hypoxemia R09.02 Pneumonia due to COVID-19 virus U07.1; J12.82
[2021-11-30] MEDS: fluticasone nasal spray 16gm Btl 2 SPRAY NASAL (10:00)
[2021-11-30] MEDS: cholecalciferol (vitamin D3) 1,000 unit Tablet 2000 UNIT PO (10:00)
[2021-11-30] MEDS: zinc gluconate 50 mg Tablet PO (10:00)
[2021-11-30] MEDS: ascorbic acid 500 mg Tablet 1000 MG PO ×2 (10:00→18:40)
[2021-11-30] MEDS: LORazepam 0.5 mg Tablet PO (10:00)
[2021-11-30] MEDS: pantoprazole DR 40 mg Tablet PO (10:00)
[2021-11-30] MEDS: hydroCHLOROthiazide 25 mg Tablet PO (10:00)
--- NOTE | 2021-11-30 11:01 | PC.SOCIAL ---
IMM update IMM updated with patient. Verbalized an understanding. Initialled, dated, timed, and placed in chart.
[2021-11-30] MEDS: remdesivir 100 MG in sodium chloride 0.9% (100 ml) 80 ML IV (18:41)
[2021-11-30] MEDS: dexamethasone 4 mg/mL INJ 6 MG IVP (18:41)
[2021-11-30] MEDS: enoxaparin 40 mg/0.4 mL Syringe SUBCUT (18:41)
[2021-12-01] VITALS (14 sets, daily range): BP systolic 113–152; BP diastolic 68–84; PULSE 68–98; RESP 16–22; TEMP 36.6–37.1; O2SAT 83–93
[2021-12-01 04:51] LABS: ABG PCO2 40.6 mmHg (35-45); ABG PH Result 7.47 (7.35-7.45); Arterial Blood Gas Hematocrit 45.5 % (37-47); Base Excess ABG 5.6 mmol/L (-2.0-2.0); Blood Gas Allen Test Pos; Blood Gas Sample Type Arterial; HCO3 ABG 29.7 mmol/L (22-26); PO2 ABG 47.2 mmHg (80.0-100.0)
[2021-12-01 04:53] LABS: Blood Gas Sample Site Radial, left; Oxygen Device HAG
[2021-12-01 05:11] LABS: Basophils % 0.2 %; Hematocrit 42.3 % (37.0-47.0); Hemoglobin 14.3 g/dL (11.5-15.3); Lymphocytes # 0.8 10^3/uL (0.8-4.8); Lymphocytes % 13.7 %; Mean Corpuscular HGB Conc 33.8 g/dL (30.0-36.0); Mean Corpuscular Hemoglobin 30.3 pg (28.0-34.0); Mean Corpuscular Volume 89.6 fl (81-99); Mean Platelet Volume 10.4 fL (7.4-10.4); Monocytes # 0.4 10^3/uL (0.2-0.9); Neutrophils % 78.6 %; Nucleated Red Blood Cells % 0 %; Platelet Count 238 10^3/cmm (130-400); Red Blood Count 4.72 10^6/uL (4.1-5.3); Red Cell Distribution Width 12.6 % (12.1-15.1); White Blood Count 5.9 10^3/uL (4.0-10.0)
[2021-12-01 05:26] LABS: Blood Urea Nitrogen 16 mg/dL (8-23); C Reactive Protein 16.5 mg/L (0.0-4.9); Calcium 8.9 mg/dL (8.5-10.5); Carbon Dioxide 24 mmol/L (22-29); Chloride 101 mmol/L (98-107); Glomerular Filtration Rate 122.3 mL/min (90-130); Glucose 159 mg/dL (65-115); Osmolality Calculated 283 mOsm/kg (285-295); Sodium 134 mmol/L (136-145)
--- NOTE | 2021-12-01 05:40 | PC.NURSE ---
i reported low 02 84 to nurse
[2021-12-01] MEDS: ipratropium-albuterol 3 mL Neb INHALATION (08:08)
--- NOTE | 2021-12-01 08:21 | PC.RESP ---
RT Shift Note Frequent safety and respiratory rounds continue. Orders completed as indicated. Patient monitored pre and post treatments throughout shift. Patient [Did.] tolerate treatments appropriately. Condition [Improved.]. Patient and/or in home sales representative educated on respiratory treatment and medications. Patient and/or in home sales representative [verbalized understanding]. Will continue to monitor patient progress.
--- NOTE | 2021-12-01 09:02 | P.PN_ITS ---
Subjective Subjective: Patient seen and examined this morning, she is endorsing feeling better however experiencing a nonproductive cough, heated high flow 60%, 40 L, ABG reviewed, she did receive Actemra yesterday Afebrile Vitals/I&O/Wt Last Vital Signs Temp 98.8 F 12/01/21 08:00 Pulse 69 12/01/21 08:10 Resp 22 H 12/01/21 08:10 BP 152/79 12/01/21 08:00 Pulse Ox 83 L 12/01/21 08:10 11/30/21 12/01/21 12/01/21 22:59 06:59 14:59 Intake Total 340 / 1170 Output Total 1200 / 1600 Balance 340 / 770 -1200 / -430 Physical Exam Narrative: Patient sitting in her bed No conversational dyspnea Bilateral breath sounds without rhonchi or crackles today Abdomen soft Looks euvolemic Nonproductive cough S1, S2 Nonfocal neuro exam High flow at the bedside Data : 12/01/21 04:31 12/01/21 04:31 Micro: Microbiology 11/27/21 14:21 Blood Culture - Preliminary Blood Staphylococcus sp coag neg A&P Assessment and plan (1) Acute respiratory failure with hypoxia: Status: Acute (2) Hypoxemia: Status: Acute (3) Pneumonia due to COVID-19 virus: Status: Acute (4) Elevated blood pressure reading without diagnosis of hypertension: Status: Acute (5) COVID-19 vaccination not done: Status: Acute Plan COVID-19 related persistent hypoxia Continue remdesivir and Decadron Status post Actemra 11/30 Repeat D-dimer tomorrow morning Currently heated high flow FiO2 60% 40 L Abdoul Lemos for cough check procalcitonin level she has been afebrile continue multivitamins Attestations Medical Necessity Statement*: Continue medical management Time Spent in Patient Care: 15 minutes Coding Level of Care Code Acute Almond Grinder for [facility] Fwailyn Diagnoses Acute respiratory failure with hypoxia J96.01 Hypoxemia R09.02 Pneumonia due to COVID-19 virus U07.1; J12.82 Elevated blood pressure reading without diagnosis of hypertension R03.0 COVID-19 vaccination not done Z28.9
--- NOTE | 2021-12-01 09:04 | XR_ITS ---
WS: [id number] XR chest 1V portable [id number] REASON FOR EXAM: hypoxia FINDINGS: Current examination is unchanged compared to 11/27/2021. There are coarse reticular and patchy hazy lung opacities peripherally, bilaterally most prominent on the left. XR/XR chest 1V portable [id number] IMPRESSION: Lung findings are of uncertain chronicity since previous normal examination was in 2012. The findings are compatible with subacute Covid pneumonitis superimposed on abn ormal lung.
[2021-12-01] MEDS: zinc gluconate 50 mg Tablet PO (10:40)
[2021-12-01] MEDS: pantoprazole DR 40 mg Tablet PO (10:40)
[2021-12-01] MEDS: ascorbic acid 500 mg Tablet 1000 MG PO ×2 (10:40→18:04)
[2021-12-01] MEDS: cholecalciferol (vitamin D3) 1,000 unit Tablet 2000 UNIT PO (10:40)
[2021-12-01] MEDS: hydroCHLOROthiazide 25 mg Tablet PO (10:40)
[2021-12-01] MEDS: fluticasone nasal spray 16gm Btl 2 SPRAY NASAL (10:40)
--- NOTE | 2021-12-01 11:07 | ECG_ITS ---
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: : [id number] Requested By: Antonio Wright Order Number: [id number] Reading MD: ANTONIO ROSS Measurements Intervals [place] Rate: 120 P: ME: QRS: -27 QRSD: 111 T: 83 QT: 328 QTc: 464 Interpretive Statements ATRIAL FIBRILLATION WITH RAPID VENTRICULAR RESPONSE BORDERLINE LEFT AXIS DEVIATION [QRS AXIS < -20] LOW QRS VOLTAGE IN PRECORDIAL LEADS [QRS DEFLECTION < 1.0 mV IN CHEST LEADS] PATTERN CONSISTENT WITH PULMONARY DISEASE MODERATE INTRAVENTRICULAR CONDUCTION DELAY [110+ ms QRS DURATION] MODERATE VOLTAGE CRITERIA FOR LVH, CONSIDER NORMAL VARIANT [MEETS CRITERIA IN ONE OF: R(aVL), S(V1), R(V5), R(V5/V6)+S(V1)] NONSPECIFIC ST & T-WAVE ABNORMALITY Compared to ECG 11/27/2021 13:24:17 Low QRS voltage now present Intraventricular conduction delay now present Sinus rhythm no longer present Electronically Signed On 12-01-2021 22:55:12 ACTUARIAL TECHNICIAN by ANTONIO ROSS [id number]
[2021-12-01] MEDS: LORazepam 0.5 mg Tablet PO ×2 (11:34→20:09)
[2021-12-01] MEDS: dexamethasone 4 mg/mL INJ 6 MG IVP (15:25)
[2021-12-01] MEDS: remdesivir 100 MG in sodium chloride 0.9% (100 ml) 80 ML IV (15:25)
[2021-12-01 15:44] LABS: ABG PCO2 31.5 mmHg (35-45); ABG PH Result 7.51 (7.35-7.45); Arterial Blood Gas Hematocrit 49.8 % (37-47); Base Excess ABG 2.8 mmol/L (-2.0-2.0); Blood Gas Allen Test Pos; Blood Gas Operator Identificat GD; Blood Gas Sample Site Radial, right; Blood Gas Sample Type Arterial; Oxygen Device NC
[2021-12-01] MEDS: FUROsemide 10 mg/mL SDV 10mL 60 MG IVP (18:04)
[2021-12-01] MEDS: ALPRAZolam 0.5 mg Tablet PO (18:45)
[2021-12-01] MEDS: enoxaparin 100 mg/mL Syringe SUBCUT (20:08)
[2021-12-01] MEDS: metoprolol tartrate 25 mg Tablet PO (20:09)
[2021-12-02] VITALS (14 sets, daily range): BP systolic 100–115; BP diastolic 67–80; PULSE 71–100; RESP 16–24; TEMP 36.4–37.2; O2SAT 90–95
[2021-12-02 04:09] LABS: ABG PCO2 37.6 mmHg (35-45); ABG PH Result 7.53 (7.35-7.45); Arterial Blood Gas Hematocrit 52.4 % (37-47); Base Excess ABG 8.4 mmol/L (-2.0-2.0); Blood Gas Allen Test Pos; Blood Gas Sample Site Radial, right; Blood Gas Sample Type Arterial; HCO3 ABG 31.6 mmol/L (22-26); Oxygen Device NC; PO2 ABG 46.9 mmHg (80.0-100.0)
[2021-12-02 06:42] LABS: Basophils % 0.1 %; Eosinophils % 0.1 %; Hematocrit 48.7 % (37.0-47.0); Hemoglobin 16.8 g/dL (11.5-15.3); Lymphocytes % 12.5 %; Mean Corpuscular HGB Conc 34.5 g/dL (30.0-36.0); Mean Corpuscular Hemoglobin 30.3 pg (28.0-34.0); Mean Corpuscular Volume 87.9 fl (81-99); Mean Platelet Volume 10.4 fL (7.4-10.4); Monocytes # 0.6 10^3/uL (0.2-0.9); Monocytes % 7.5 %; Neutrophils # 6.18 10^3/uL (1.8-7.7); Neutrophils % 79.2 %; Nucleated Red Blood Cells % 0 %; Platelet Count 305 10^3/cmm (130-400); Red Blood Count 5.54 10^6/uL (4.1-5.3); Red Cell Distribution Width 12.7 % (12.1-15.1); White Blood Count 7.8 10^3/uL (4.0-10.0)
[2021-12-02 07:21] LABS: D Dimer 0.78 ug/mIFEU (0-0.59)
[2021-12-02 07:49] LABS: Anion Gap 17.8 (5-19); Blood Urea Nitrogen 18 mg/dL (8-23); C Reactive Protein 11.6 mg/L (0.0-4.9); Calcium 8.4 mg/dL (8.5-10.5); Carbon Dioxide 26 mmol/L (22-29); Chloride 99 mmol/L (98-107); Glomerular Filtration Rate 99.1 mL/min (90-130); Glucose 144 mg/dL (65-115); Osmolality Calculated 292 mOsm/kg (285-295); Potassium 3.8 mmol/L (3.5-5.1); Sodium 139 mmol/L (136-145)
[2021-12-02] MEDS: cholecalciferol (vitamin D3) 1,000 unit Tablet 2000 UNIT PO (09:09)
[2021-12-02] MEDS: enoxaparin 100 mg/mL Syringe SUBCUT ×2 (09:09→20:02)
[2021-12-02] MEDS: pantoprazole DR 40 mg Tablet PO (09:10)
[2021-12-02] MEDS: zinc gluconate 50 mg Tablet PO (09:10)
[2021-12-02] MEDS: hydroCHLOROthiazide 25 mg Tablet PO (09:10)
[2021-12-02] MEDS: metoprolol tartrate 25 mg Tablet PO (09:10)
[2021-12-02] MEDS: ascorbic acid 500 mg Tablet 1000 MG PO ×2 (09:10→17:13)
[2021-12-02] MEDS: fluticasone nasal spray 16gm Btl 2 SPRAY NASAL (09:25)
[2021-12-02] MEDS: ipratropium-albuterol 3 mL Neb INHALATION (10:17)
--- NOTE | 2021-12-02 11:15 | PC.SOCIAL ---
IMM Update pg 2 of IMM updated and reviewed w/ patient and daughter. Copy provided.
[2021-12-02] MEDS: labetalol 5 mg/mL SDV 20mL IVP (12:37)
--- NOTE | 2021-12-02 14:28 | PM.PN ---
Subjective Subjective: Patient was seen, daughter was at the bedside Patient is endorsing feeling better however she has lost her taste I encouraged her to drink and eat more, will do BiPAP today as she is still hypoxic on 100% FiO2 high flow We will give her labetalol for A. fib RVR, she is on therapeutic dose of Lovenox Repeat chest x-ray She is DNR/DNI, she is okay with BiPAP does not want intubation or chest compressions in case of any further deterioration, daughter is at the bedside Vitals/I&O/Wt Last Vital Signs Temp 98.4 F 12/02/21 11:14 Pulse 90 12/02/21 13:20 Resp 18 12/02/21 11:14 BP 104/67 12/02/21 07:32 Pulse Ox 91 12/02/21 13:20 12/01/21 12/02/21 12/02/21 22:59 06:59 14:59 Intake Total 460 / 710 680 / 1390 220 / 220 Output Total 3800 / 3800 2500 / 6300 Balance -3340 / -3090 -1820 / -4910 220 / 220 Weight last 48 hrs Weight 99.79 kg Physical Exam Narrative: Daughter at the bedside Patient is sitting in a chair No active shortness of breath or conversational dyspnea Euvolemic No audible stridor or wheezing Currently on heated high flow 100% FiO2 Soft abdomen Trace edema of legs Awake and alert Nonfocal neuro exam Data : 12/02/21 05:10 12/02/21 05:10 Micro: Microbiology 11/27/21 13:13 Blood Culture - Final Blood NO GROWTH AFTER 5 DAYS A&P Assessment and plan (1) Acute respiratory failure with hypoxia: Status: Acute (2) Hypoxemia: Status: Acute (3) Pneumonia due to COVID-19 virus: Status: Acute (4) Elevated blood pressure reading without diagnosis of hypertension: Status: Acute (5) COVID-19 vaccination not done: Status: Acute (6) Afib: Status: Acute (7) Goals of care, counseling/discussion: Status: Acute Plan COVID-19 related worsening hypoxia We will transition to BiPAP For A. 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
[2021-12-02] MEDS: dexamethasone 4 mg/mL INJ 6 MG IVP (15:31)
[2021-12-02] MEDS: metoprolol tartrate 25 mg Tablet 50 MG PO (20:03)
[2021-12-02] MEDS: acetaminophen 325 mg Tablet 650 MG PO (20:10)
[2021-12-02] MEDS: ALPRAZolam 0.5 mg Tablet PO (20:11)
[2021-12-03] VITALS (17 sets, daily range): BP systolic 105–122; BP diastolic 72–79; PULSE 78–103; RESP 17–26; TEMP 36.3–36.6; O2SAT 88–97
[2021-12-03 04:43] LABS: Basophils % 0.1 %; Eosinophils % 0.4 %; Hematocrit 49.9 % (37.0-47.0); Hemoglobin 16.5 g/dL (11.5-15.3); Lymphocytes # 0.8 10^3/uL (0.8-4.8); Lymphocytes % 10.9 %; Mean Corpuscular HGB Conc 33.1 g/dL (30.0-36.0); Mean Corpuscular Hemoglobin 29.6 pg (28.0-34.0); Mean Corpuscular Volume 89.4 fl (81-99); Mean Platelet Volume 10.3 fL (7.4-10.4); Monocytes # 0.4 10^3/uL (0.2-0.9); Monocytes % 5.6 %; Neutrophils # 6.03 10^3/uL (1.8-7.7); Neutrophils % 82.3 %; Nucleated Red Blood Cells % 0 %; Platelet Count 315 10^3/cmm (130-400); Red Blood Count 5.58 10^6/uL (4.1-5.3); Red Cell Distribution Width 12.9 % (12.1-15.1); White Blood Count 7.3 10^3/uL (4.0-10.0)
[2021-12-03 04:44] LABS: ABG PCO2 33.6 mmHg (35-45); ABG PH Result 7.53 (7.35-7.45); Arterial Blood Gas Hematocrit 52.9 % (37-47); Base Excess ABG 5.7 mmol/L (-2.0-2.0); Blood Gas Allen Test Pos; Blood Gas Sample Type Arterial; HCO3 ABG 28.1 mmol/L (22-26)
[2021-12-03 04:45] LABS: Blood Gas Sample Site Radial, left; Oxygen Device BIPAP
[2021-12-03 05:06] LABS: Blood Urea Nitrogen 25 mg/dL (8-23); Carbon Dioxide 23 mmol/L (22-29); Chloride 98 mmol/L (98-107); Glucose 187 mg/dL (65-115); Osmolality Calculated 285 mOsm/kg (285-295); Sodium 133 mmol/L (136-145)
[2021-12-03 05:10] LABS: Anion Gap 15.8 (5-19); Potassium 3.8 mmol/L (3.5-5.1)
[2021-12-03 05:12] LABS: Procalcitonin 0.09 ng/mL (0-0.5)
[2021-12-03] MEDS: potassium chloride ER 20 mEq Tablet PO (09:23)
[2021-12-03] MEDS: metoprolol tartrate 25 mg Tablet 50 MG PO ×2 (09:23→20:47)
[2021-12-03] MEDS: zinc gluconate 50 mg Tablet PO (09:23)
[2021-12-03] MEDS: ascorbic acid 500 mg Tablet 1000 MG PO ×2 (09:23→17:58)
[2021-12-03] MEDS: FUROsemide 20 mg Tablet PO (09:23)
[2021-12-03] MEDS: pantoprazole DR 40 mg Tablet PO (09:23)
[2021-12-03] MEDS: enoxaparin 100 mg/mL Syringe SUBCUT (09:23)
[2021-12-03] MEDS: fluticasone nasal spray 16gm Btl 2 SPRAY NASAL (09:24)
--- NOTE | 2021-12-03 10:05 | PM.PN ---
Subjective Subjective: Patient this morning is stating that she is feeling better, she did use BiPAP overnight which improved her oxygenation Switched from BiPAP to heated high flow 90% Vitals/I&O/Wt Last Vital Signs Temp 97.4 F L 12/03/21 07:36 Pulse 90 12/03/21 08:29 Resp 24 H 12/03/21 08:29 BP 122/79 12/03/21 07:36 Pulse Ox 92 12/03/21 08:29 12/02/21 12/03/21 12/03/21 22:59 06:59 14:59 Intake Total 340 / 560 46.667 / 46.667 Output Total 600 / 600 Balance 340 / 560 -600 / -40 46.667 / 46.667 Weight last 48 hrs Weight 99.79 kg Physical Exam Narrative: Patient is sitting in her bed Feeling fine In good spirits Bilateral breath sound no rhonchi or crackles Currently on heated high flow 90% Looks mildly dehydrated Soft abdomen Nonfocal neuro exam Data : 12/03/21 04:18 12/03/21 04:18 Micro: Microbiology 11/27/21 13:13 Blood Culture - Final Blood NO GROWTH AFTER 5 DAYS A&P Assessment and plan (1) Goals of care, counseling/discussion: Status: Acute (2) Afib: Status: Acute (3) Acute respiratory failure with hypoxia: Status: Acute (4) Elevated blood pressure reading without diagnosis of hypertension: Status: Acute (5) COVID-19 vaccination not done: Status: Acute (6) Hypoxemia: Status: Acute (7) Pneumonia due to COVID-19 virus: Status: Acute Plan COVID-19 related hypoxia Use BiPAP overnight which improved her oxygenation Currently on heated high flow 90% Patient endorsing feeling dehydrated Encouraged to eat and drink more CTA rule out PE D-dimer not remarkable New onset A. 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
--- NOTE | 2021-12-03 10:12 | USR_ITS ---
PROCEDURE INFORMATION: Exam: US Duplex Lower Extremity Veins, Bilateral Exam date and time: 12/03/2021 10:12 AM Age: 71 years old Clinical indication: Other: Covid with hypoxia; Patient HX: SOB and extreme weakness; Additional info: Swelling, hypoxia TECHNIQUE: Imaging protocol: Real-time Duplex ultrasound of the bilateral extremities with 2-D caban scale, color Doppler flow and spectral waveform analysis with image documentation. Complete exam focused on the bilateral lower extremity veins. COMPARISON: CR XR knee LT 1-2V [id number] 05/25/2021 1:47 PM FINDINGS: Right deep veins: Unremarkable. The common femoral, femoral, proximal profunda femoral and popliteal veins are patent without thrombus. Normal Doppler waveforms. Normal compressibility and/or augmentation response. Right superficial veins: Saphenofemoral junction is patent without thrombus. Left deep veins: Unremarkable. The common femoral, femoral, proximal profunda femoral and popliteal veins are patent without thrombus. Normal Doppler waveforms. Normal compressibility and/or augmentation response. Left superficial veins: Saphenofemoral junction is patent without thrombus. Soft tissues: Unremarkable. US/CV venous duplex [facility] [id number] IMPRESSION: No evidence of deep vein thrombosis, bilateral lower extremities.
[2021-12-03] MEDS: dexamethasone 4 mg/mL INJ 6 MG IVP (15:09)
[2021-12-03] MEDS: cefTRIAXone 1,000 MG in sodium chloride 0.9% (plus) 100 ML 100 MG IV (15:19)
[2021-12-03] MEDS: ALPRAZolam 0.5 mg Tablet PO (20:47)
[2021-12-03] MEDS: apixaban 5 mg Tablet PO (20:47)
[2021-12-04] VITALS (14 sets, daily range): BP systolic 111–136; BP diastolic 70–88; PULSE 74–109; RESP 18–28; TEMP 36.6–37; O2SAT 88–91
[2021-12-04 03:29] LABS: ABG PCO2 33.4 mmHg (35-45); ABG PH Result 7.53 (7.35-7.45); Arterial Blood Gas Hematocrit 53.6 % (37-47); Base Excess ABG 5.2 mmol/L (-2.0-2.0); Blood Gas Sample Site Radial, left; Blood Gas Sample Type Arterial; HCO3 ABG 27.6 mmol/L (22-26); Oxygen Device NC
[2021-12-04 05:20] LABS: Basophils % 0.2 %; Eosinophils # 0.1 10^3/uL (0.0-0.8); Eosinophils % 0.8 %; Hematocrit 52.7 % (37.0-47.0); Hemoglobin 17.2 g/dL (11.5-15.3); Lymphocytes # 0.7 10^3/uL (0.8-4.8); Lymphocytes % 8.6 %; Mean Corpuscular HGB Conc 32.6 g/dL (30.0-36.0); Mean Platelet Volume 10.2 fL (7.4-10.4); Monocytes # 0.6 10^3/uL (0.2-0.9); Monocytes % 6.8 %; Neutrophils % 82.8 %; Nucleated Red Blood Cells % 0 %; Platelet Count 328 10^3/cmm (130-400); Red Blood Count 5.73 10^6/uL (4.1-5.3); White Blood Count 8.4 10^3/uL (4.0-10.0)
[2021-12-04 05:42] LABS: Anion Gap 14.9 (5-19); Blood Urea Nitrogen 23 mg/dL (8-23); Calcium 8.9 mg/dL (8.5-10.5); Carbon Dioxide 22 mmol/L (22-29); Chloride 101 mmol/L (98-107); Glomerular Filtration Rate 99.1 mL/min (90-130); Glucose 180 mg/dL (65-115); Osmolality Calculated 286 mOsm/kg (285-295); Potassium 3.9 mmol/L (3.5-5.1); Sodium 134 mmol/L (136-145)
[2021-12-04] MEDS: ipratropium-albuterol 3 mL Neb INHALATION ×3 (07:30→15:17)
[2021-12-04] MEDS: metoprolol tartrate 25 mg Tablet 50 MG PO ×2 (08:36→20:36)
[2021-12-04] MEDS: apixaban 5 mg Tablet PO ×2 (08:37→20:36)
[2021-12-04] MEDS: FUROsemide 20 mg Tablet PO (08:37)
[2021-12-04] MEDS: pantoprazole DR 40 mg Tablet PO (08:37)
[2021-12-04] MEDS: potassium chloride ER 20 mEq Tablet PO (08:37)
[2021-12-04] MEDS: zinc gluconate 50 mg Tablet PO (08:37)
[2021-12-04] MEDS: fluticasone nasal spray 16gm Btl 2 SPRAY NASAL (08:37)
[2021-12-04] MEDS: ascorbic acid 500 mg Tablet 1000 MG PO ×2 (08:37→18:23)
--- NOTE | 2021-12-04 08:53 | PM.PN ---
Subjective Subjective: Patient is on heated high flow 85%, 40 L She is endorsing feeling better, she had 1 bowel movement yesterday No active shortness of breath or chest pain She was complaining of dry lips Vitals/I&O/Wt Last Vital Signs Temp 97.8 F 12/04/21 03:59 Pulse 109 H 12/04/21 08:00 Resp 22 H 12/04/21 07:30 BP 116/80 12/04/21 08:00 Pulse Ox 89 L 12/04/21 07:30 12/03/21 12/04/21 12/04/21 22:59 06:59 14:59 Intake Total 340 / 866.667 240 / 1106.667 Output Total 425 / 425 Balance -85 / 441.667 240 / 681.667 Physical Exam Narrative: Patient was sitting comfortably in her bed No active conversational dyspnea On heated high flow 85% 40 L Bilateral breath sounds I do not appreciate any rhonchi or crackles He does look euvolemic Extremity no edema Nonfocal neuro exam Data : 12/04/21 04:19 12/04/21 04:19 A&P Assessment and plan (1) Goals of care, counseling/discussion: Status: Acute (2) Afib: Status: Acute (3) Acute respiratory failure with hypoxia: Status: Acute (4) Elevated blood pressure reading without diagnosis of hypertension: Status: Acute (5) COVID-19 vaccination not done: Status: Acute (6) Hypoxemia: Status: Acute (7) Pneumonia due to COVID-19 virus: Status: Acute Plan COVID-19 related hypoxia Her PO2 reviewed Her oxygenation improved with use of BiPAP however she was kept on heated high flow overnight Patient does have Ensure at the bedside, she is trying to eat better however endorsing change in her taste She is showing signs of recovery however I do believe she will need long-term 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
--- NOTE | 2021-12-04 11:51 | PC.SOCIAL ---
IMM Update Pg. 2 of IMM updated and reviewed with patient's daughter over the phone, who verbalized understanding. Dated, timed, and initialed copy in chart.
[2021-12-04] MEDS: dexamethasone 4 mg/mL INJ 6 MG IVP (15:02)
[2021-12-04] MEDS: cefTRIAXone 1,000 MG in sodium chloride 0.9% (plus) 100 ML 100 MG IV (15:15)
[2021-12-04] MEDS: acetaminophen 325 mg Tablet 650 MG PO (15:15)
[2021-12-04] MEDS: ALPRAZolam 0.5 mg Tablet PO (20:53)
[2021-12-05] VITALS (10 sets, daily range): BP systolic 114–122; BP diastolic 73–84; PULSE 65–90; RESP 18–22; TEMP 36.4–36.9; O2SAT 86–93
[2021-12-05 04:23] LABS: ABG PCO2 34.2 mmHg (35-45); ABG PH Result 7.53 (7.35-7.45); Arterial Blood Gas Hematocrit 49.4 % (37-47); Base Excess ABG 6.1 mmol/L (-2.0-2.0); Blood Gas Allen Test Pos; Blood Gas Sample Site Radial, right; Blood Gas Sample Type Arterial; HCO3 ABG 28.7 mmol/L (22-26); Oxygen Device NC; PO2 ABG 53.7 mmHg (80.0-100.0)
[2021-12-05 06:54] LABS: Basophils % 0.1 %; Eosinophils # 0.1 10^3/uL (0.0-0.8); Eosinophils % 0.7 %; Hematocrit 47.6 % (37.0-47.0); Hemoglobin 15.8 g/dL (11.5-15.3); Lymphocytes # 0.7 10^3/uL (0.8-4.8); Mean Corpuscular HGB Conc 33.2 g/dL (30.0-36.0); Mean Corpuscular Hemoglobin 29.9 pg (28.0-34.0); Mean Corpuscular Volume 90.2 fl (81-99); Mean Platelet Volume 10.7 fL (7.4-10.4); Monocytes # 0.7 10^3/uL (0.2-0.9); Monocytes % 8.7 %; Neutrophils # 6.56 10^3/uL (1.8-7.7); Nucleated Red Blood Cells % 0 %; Platelet Count 259 10^3/cmm (130-400); Red Blood Count 5.28 10^6/uL (4.1-5.3); Red Cell Distribution Width 13.1 % (12.1-15.1); White Blood Count 8.2 10^3/uL (4.0-10.0)
[2021-12-05 07:17] LABS: Blood Urea Nitrogen 21 mg/dL (8-23); Carbon Dioxide 24 mmol/L (22-29); Chloride 101 mmol/L (98-107); Glomerular Filtration Rate 99.1 mL/min (90-130); Glucose 147 mg/dL (65-115); Osmolality Calculated 286 mOsm/kg (285-295); Sodium 135 mmol/L (136-145)
[2021-12-05 07:29] LABS: Anion Gap 14.4 (5-19); Potassium 4.4 mmol/L (3.5-5.1)
--- NOTE | 2021-12-05 09:14 | P.PN_ITS ---
Subjective Subjective: This morning PO2 is 53.7 on 75% FiO2 heated high flow Patient is endorsing dehydration, however she is trying to drink more Ensure Clinically?show signs of dehydration Her A. fib present without RVR Afebrile No leukocytosis No overnight events Vitals/I&O/Wt Last Vital Signs Temp 97.7 F 12/05/21 07:25 Pulse 71 12/05/21 07:25 Resp 22 H 12/05/21 07:25 BP 122/84 12/05/21 07:25 Pulse Ox 86 L 12/05/21 07:25 12/04/21 12/05/21 12/05/21 22:59 06:59 14:59 Intake Total 320 / 800 Output Total 1050 / 1050 Balance -730 / -250 Physical Exam Narrative: Patient was sitting in her bed Heated high flow 75% Clinically looks dehydrated Complaining of nasal congestion Bilateral breath sounds I did not appreciate any rhonchi however expiratory crackles right lung lower base No signs of respiratory distress no conversational dyspnea noted Nonfocal neuro exam Appropriate mood and affect Abdomen is soft Variable S1-S2 Data : 12/05/21 06:40 12/05/21 06:40 A&P Assessment and plan (1) Goals of care, counseling/discussion: Status: Acute (2) Afib: Status: Acute (3) Acute respiratory failure with hypoxia: Status: Acute (4) Elevated blood pressure reading without diagnosis of hypertension: Status: Acute (5) COVID-19 vaccination not done: Status: Acute (6) Hypoxemia: Status: Acute (7) Pneumonia due to COVID-19 virus: Status: Acute Plan COVID-19 related hypoxia Heated high flow 75% FiO2, Continue steroids Status post remdesivir regimen, she also received Actemra No signs of superimposed bacterial infection currently on empirical coverage with Rocephin 4 A. 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
[2021-12-05] MEDS: metoprolol tartrate 25 mg Tablet 50 MG PO ×2 (10:06→21:01)
[2021-12-05] MEDS: cholecalciferol (vitamin D3) 1,000 unit Tablet 2000 UNIT PO (10:06)
[2021-12-05] MEDS: ascorbic acid 500 mg Tablet 1000 MG PO ×2 (10:06→18:37)
[2021-12-05] MEDS: fluticasone nasal spray 16gm Btl 2 SPRAY NASAL (10:07)
[2021-12-05] MEDS: apixaban 5 mg Tablet PO ×2 (10:07→21:01)
[2021-12-05] MEDS: potassium chloride ER 20 mEq Tablet PO (10:07)
[2021-12-05] MEDS: pantoprazole DR 40 mg Tablet PO (10:07)
[2021-12-05] MEDS: zinc gluconate 50 mg Tablet PO (10:07)
[2021-12-05] MEDS: cefTRIAXone 1,000 MG in sodium chloride 0.9% (plus) 100 ML 100 MG IV (15:27)
[2021-12-05] MEDS: dexamethasone 4 mg/mL INJ 6 MG IVP (15:28)
[2021-12-05] MEDS: FUROsemide 20 mg Tablet PO (15:28)
[2021-12-05] MEDS: ALPRAZolam 0.5 mg Tablet PO (21:01)
[2021-12-06] VITALS (12 sets, daily range): BP systolic 104–133; BP diastolic 67–83; PULSE 57–84; RESP 14–20; TEMP 36.6–36.9; O2SAT 88–92
[2021-12-06 07:04] LABS: Basophils % 0.1 %; Eosinophils # 0.1 10^3/uL (0.0-0.8); Eosinophils % 1.2 %; Hematocrit 44.9 % (37.0-47.0); Hemoglobin 15.1 g/dL (11.5-15.3); Lymphocytes # 0.8 10^3/uL (0.8-4.8); Lymphocytes % 12.3 %; Mean Corpuscular HGB Conc 33.6 g/dL (30.0-36.0); Mean Corpuscular Hemoglobin 30.4 pg (28.0-34.0); Mean Corpuscular Volume 90.5 fl (81-99); Mean Platelet Volume 10.2 fL (7.4-10.4); Monocytes # 0.7 10^3/uL (0.2-0.9); Neutrophils # 5.15 10^3/uL (1.8-7.7); Neutrophils % 75.5 %; Nucleated Red Blood Cells % 0 %; Platelet Count 268 10^3/cmm (130-400); Red Blood Count 4.96 10^6/uL (4.1-5.3); Red Cell Distribution Width 13.3 % (12.1-15.1); White Blood Count 6.8 10^3/uL (4.0-10.0)
[2021-12-06 07:11] LABS: Anion Gap 12.4 (5-19); Blood Urea Nitrogen 21 mg/dL (8-23); Calcium 8.8 mg/dL (8.5-10.5); Carbon Dioxide 26 mmol/L (22-29); Chloride 101 mmol/L (98-107); Glomerular Filtration Rate 122.3 mL/min (90-130); Glucose 174 mg/dL (65-115); Osmolality Calculated 287 mOsm/kg (285-295); Potassium 4.4 mmol/L (3.5-5.1); Sodium 135 mmol/L (136-145)
[2021-12-06] MEDS: ipratropium-albuterol 3 mL Neb INHALATION (07:55)
--- NOTE | 2021-12-06 08:53 | PC.SOCIAL ---
IMM Update Pg. 2 of IMM updated and reviewed with patient, who verbalized understanding. Copy provided.
[2021-12-06] MEDS: potassium chloride ER 20 mEq Tablet PO (10:11)
[2021-12-06] MEDS: zinc gluconate 50 mg Tablet PO (10:11)
[2021-12-06] MEDS: ascorbic acid 500 mg Tablet 1000 MG PO ×2 (10:11→17:45)
[2021-12-06] MEDS: cholecalciferol (vitamin D3) 1,000 unit Tablet 2000 UNIT PO (10:12)
[2021-12-06] MEDS: pantoprazole DR 40 mg Tablet PO (10:12)
[2021-12-06] MEDS: apixaban 5 mg Tablet PO ×2 (12:34→20:53)
[2021-12-06] MEDS: metoprolol tartrate 25 mg Tablet 50 MG PO ×2 (12:34→20:52)
--- NOTE | 2021-12-06 14:39 | P.PN_ITS ---
Subjective Subjective: No overnight events, this morning she is on on 8 L nasal cannula,, she was eating breakfast Vitals/I&O/Wt Last Vital Signs Temp 98.4 F 12/06/21 07:14 Pulse 66 12/06/21 08:05 Resp 17 12/06/21 07:55 BP 126/83 12/06/21 07:14 Pulse Ox 91 12/06/21 08:09 12/05/21 12/06/21 12/06/21 22:59 06:59 14:59 Intake Total 900 / 1500 100 / 100 Output Total 2400 / 2400 Balance -1500 / -900 100 / 100 Weight last 48 hrs Weight 102.194 kg Physical Exam 2 Narrative: Patient was sitting in her bed On 8 L nasal cannula Does not look dehydrated S1, S2 variable Abdomen soft No signs of edema or dehydration Nasal congestion EOMI, PERRLA Nonfocal neuro exam Patient seems to be in good spirits with her progress Data : 12/06/21 06:26 12/06/21 06:26 A&P Assessment and plan (1) Goals of care, counseling/discussion: Status: Acute (2) Afib: Status: Acute (3) Acute respiratory failure with hypoxia: Status: Acute (4) Elevated blood pressure reading without diagnosis of hypertension: Status: Acute (5) COVID-19 vaccination not done: Status: Acute (6) Hypoxemia: Status: Acute (7) Pneumonia due to COVID-19 virus: Status: Acute Plan COVID-19 related hypoxia Heated high flow discontinued last night, currently on 8 L nasal cannula I would like patient to get out of bed and move around to check her oxygenation on ambulation Afebrile Discontinue IV antibiotics which was given as empirical coverage No signs of pneumonia, she remained afebrile A. fib without RVR New onset A. 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
[2021-12-06] MEDS: methylphenidate 10 mg Tablet 5 MG PO (16:54)
[2021-12-06] MEDS: dexamethasone 4 mg/mL INJ 6 MG IVP (16:54)
[2021-12-06] MEDS: ALPRAZolam 0.5 mg Tablet PO (20:52)
[2021-12-07] VITALS (7 sets, daily range): BP systolic 118–123; BP diastolic 77–88; PULSE 56–70; RESP 14–20; TEMP 36.6–36.8; O2SAT 90–95
[2021-12-07 04:21] LABS: ABG PCO2 37.2 mmHg (35-45); ABG PH Result 7.49 (7.35-7.45); Arterial Blood Gas Hematocrit 45.7 % (37-47); Blood Gas Allen Test Pos; Blood Gas Sample Site Radial, left; Blood Gas Sample Type Arterial; HCO3 ABG 28.4 mmol/L (22-26); Oxygen Device NC; PO2 ABG 59.1 mmHg (80.0-100.0)
[2021-12-07] MEDS: pantoprazole DR 40 mg Tablet PO (09:11)
[2021-12-07] MEDS: cholecalciferol (vitamin D3) 1,000 unit Tablet 2000 UNIT PO (09:12)
[2021-12-07] MEDS: potassium chloride ER 20 mEq Tablet PO (09:12)
[2021-12-07] MEDS: zinc gluconate 50 mg Tablet PO (09:12)
[2021-12-07] MEDS: apixaban 5 mg Tablet PO ×2 (09:12→20:23)
[2021-12-07] MEDS: ascorbic acid 500 mg Tablet 1000 MG PO ×2 (09:12→17:15)
[2021-12-07] MEDS: FUROsemide 20 mg Tablet PO (09:12)
[2021-12-07] MEDS: metoprolol tartrate 25 mg Tablet 50 MG PO ×2 (09:12→20:23)
[2021-12-07] MEDS: fluticasone nasal spray 16gm Btl 2 SPRAY NASAL (09:14)
--- NOTE | 2021-12-07 12:35 | PM.PN ---
Subjective Subjective: Patient is in good spirits, this morning she is on 10 L nasal cannula, ABG reviewed, asked her to walk around and keep an eye on her O2 saturation, will allow her daughter to come visit her she is not in isolation anymore, discussed with porter sample case to plan her discharge home, I am anticipating she will be doing well in next 24 hours on 6 to 8 L, also updated her daughter who is willing to bring her back in her home, she is also not wanting LTAC or alf at this point Afebrile, normal blood pressure, no RVR, patient is having regular bowel movement, finishing her meals Vitals/I&O/Wt Last Vital Signs Temp 98.2 F 12/07/21 07:38 Pulse 69 12/07/21 08:41 Resp 20 H 12/07/21 08:41 BP 122/88 12/07/21 07:38 Pulse Ox 95 12/07/21 08:41 12/06/21 12/07/21 12/07/21 22:59 06:59 14:59 Intake Total 740 / 840 Output Total 600 / 600 1300 / 1900 Balance -600 / -500 -560 / -1060 Weight last 48 hrs Weight 103.691 kg Weight 102.194 kg Physical Exam Narrative: Patient is sitting in her bed saturating well on 10 L nasal cannula No active shortness of breath or conversational dyspnea Nasal congestion 10 L nasal cannula S1, S2 No crackles crepitation or wheezing Abdomen soft No signs of edema of legs Nonfocal neuro exam Appropriate mood and affect Data : 12/06/21 06:26 12/06/21 06:26 Micro: Microbiology 11/27/21 14:21 Blood Culture - Final Blood Staphylococcus sp coag neg A&P Assessment and plan (1) Goals of care, counseling/discussion: Status: Acute (2) Afib: Status: Acute (3) Acute respiratory failure with hypoxia: Status: Acute (4) Elevated blood pressure reading without diagnosis of hypertension: Status: Acute (5) COVID-19 vaccination not done: Status: Acute (6) Hypoxemia: Status: Acute (7) Pneumonia due to COVID-19 virus: Status: Acute Plan Transition of CARE note: Patient was admitted on 11/27 for management and evaluation of hypoxia related to COVID-19. Her oxygen requirement did get worse during her hospitalization to the point when she required BiPAP, she received Actemra on top of her Decadron and remdesivir, we were able to wean her off BiPAP to heated high flow down to 8 L nasal cannula on 12/06. On 12/07 she is requiring 10 L nasal cannula. Initially there was plan to send her to LTAC however with the recovery we might be able to send her home and family/daughter also not eager to send her to any facility at this point. Today I spoke with her daughter that if her oxygen saturation stays better on 6 to 8 L we might be able to discharge her in next 24 to 48 hours but today we cannot discharge her as she is on 10 L She was kept on empirical antibiotic coverage initially, she required cefepime which I have discontinued. She never spiked any fever no worsening of leukocytosis. Procalcitonin unremarkable. No signs of PE or DVT. Of note she developed new onset A. fib while she was on BiPAP. For anticoagulation I have kept her on Eliquis with AV gavino blocking agent. Hypoxia related to COVID-19 Currently on 10 L nasal cannula Finished remdesivir, Actemra and Decadron Last dose of Decadron on 12/08 A. 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
[2021-12-07] MEDS: dexamethasone 4 mg/mL INJ 6 MG IVP (14:57)
[2021-12-08] VITALS (15 sets, daily range): BP systolic 108–142; BP diastolic 66–84; PULSE 60–81; RESP 16–20; TEMP 36.3–37.3; O2SAT 91–96
[2021-12-08 03:59] LABS: ABG PCO2 39.3 mmHg (35-45); ABG PH Result 7.45 (7.35-7.45); Arterial Blood Gas Hematocrit 45.5 % (37-47); Base Excess ABG 2.7 mmol/L (-2.0-2.0); Blood Gas Allen Test Pos; Blood Gas Sample Site Radial, left; Blood Gas Sample Type Arterial; Oxygen Device NC; PO2 ABG 74.1 mmHg (80.0-100.0)
[2021-12-08 06:56] LABS: Anion Gap 13.6 (5-19); Blood Urea Nitrogen 19 mg/dL (8-23); Calcium 8.4 mg/dL (8.5-10.5); Carbon Dioxide 23 mmol/L (22-29); Chloride 104 mmol/L (98-107); Glomerular Filtration Rate 122.3 mL/min (90-130); Glucose 282 mg/dL (65-115); Osmolality Calculated 294 mOsm/kg (285-295); Potassium 4.6 mmol/L (3.5-5.1); Sodium 136 mmol/L (136-145)
[2021-12-08] MEDS: ipratropium-albuterol 3 mL Neb INHALATION ×3 (07:46→21:15)
[2021-12-08] MEDS: cholecalciferol (vitamin D3) 1,000 unit Tablet 2000 UNIT PO (08:55)
[2021-12-08] MEDS: pantoprazole DR 40 mg Tablet PO (08:55)
[2021-12-08] MEDS: metoprolol tartrate 25 mg Tablet 50 MG PO ×2 (08:55→19:59)
[2021-12-08] MEDS: ascorbic acid 500 mg Tablet 1000 MG PO (08:55)
[2021-12-08] MEDS: zinc gluconate 50 mg Tablet PO (08:55)
[2021-12-08] MEDS: potassium chloride ER 20 mEq Tablet PO (08:56)
[2021-12-08] MEDS: apixaban 5 mg Tablet PO ×2 (08:56→19:59)
[2021-12-08] MEDS: FUROsemide 20 mg Tablet PO (08:56)
[2021-12-08] MEDS: fluticasone nasal spray 16gm Btl 2 SPRAY NASAL (08:57)
--- NOTE | 2021-12-08 11:08 | PC.SOCIAL ---
IMM Update pg 2 of IMM updated and reviewed w/ patient. Copy provided and copy in chart updated.
--- NOTE | 2021-12-08 11:42 | CT_ITS ---
WS: [id number] CTA OF THE CHEST WITH PULMONARY EMBOLISM PROTOCOL TECHNIQUE: High-resolution contrast enhanced CTA of the chest with coronal and sagittal reformatted i mages with pulmonary embolism protocol. MIP images are also reviewed. CLINICAL INFORMATION: covid, persistent hypoxia COMPARISON: CT November 27, 2021 DLP: 566.[address] scans at [facility] use at least one of these dose optimization techniques: automated e xposure control; mA and/or kV adjustment per patient size (includes targeted exams where dose is matc hed to clinical indication); or iterative reconstruction. FINDINGS: Proximal main pulmonary arteries are normal. Normal segmental and subsegmental pulmonary arteries. No evidence of pulmonary embolus.Patchy airspace infiltrates throughout both lungs mainly in a subpleur al location similar to the prior examination. Slightly more confluent today. Otherwise infiltrates no t significantly changed Normal caliber thoracic aorta. Normal caliber descending thoracic aorta. No mediastinal or hilar lymp hadenopathy. No axillary lymphadenopathy. LEFT renal cyst. Adrenal glands are normal. Fatty atrophy of the pancreas. Small esophageal hiatal he rnia. Splenic granulomas. Disc osteophyte complex T8-T9 with moderate central canal stenosis. CT/CT angio chest PE protcl [id number] IMPRESSION: 1. Proximal main pulmonary arteries are normal. No evidence of pulmonary embol us. 2. Diffuse airspace infiltrates mainly in a subpleural location compatible wit h Covid 19 pneumonia. Slightly more confluence today compared to previous. 3. No other significant changes compared to previous. 4. Small esophageal hiatal hernia.
--- NOTE | 2021-12-08 11:58 | USCV_ITS ---
Peggy Villalobos Age: 71 Gender: F : 1950 Exam Date: 12/08/2021 16:34 Ordering Phys: Mayank Colmenares MD Technologist: Mavis Stroud Exam Location: [facility] – [place] Indication: HYPOXIA POSSIBLE CHF COVID BP: 113 / 74 HR: 60 Rhythm: Sinus Technical Quality: Technically difficult study MEASUREMENTS (Male / Female) Normal Values 2D ECHO LV Diastolic Diameter PLAX 4.5 cm 4.2 - 5.9 / 3.9 - 5.3 cm LV Systolic Diameter PLAX 3.8 cm LV Chamber Size 3.5 cm IVS Diastolic Thickness 1.2 cm 0.6 - 1.0 / 0.6 - 0.9 cm IVS Systolic Thickness 1.4 cm LVPW Diastolic Thickness 1.4 cm 0.6 - 1.0 / 0.6 - 0.9 cm LVPW Systolic Thickness 1.6 cm RV Chamber Size 3.7 cm LVOT Diameter 2.0 cm LV Ejection Fraction 2D Teich 35.7 % LV Ejection Fraction MOD 2C 51.0 % LV Ejection Fraction 2C AL 51.8 % LA Diameter 3.3 cm LA Width 3.4 cm LA Height 3.7 cm RA Width 4.3 cm RA Height 3.8 cm Aorta at Sinotubular Diameter 3.1 cm M-MODE Aortic Annulus Diameter 3.1 cm LA Ao Ratio MM 1.3 MV E Point Septal Separation 0.7 cm DOPPLER AV Peak Velocity 146.0 cm/s LVOT Peak Velocity 117.0 cm/s AV Area Cont Eq vti 2.6 cm squared AV Area Cont Eq pk 2.6 cm squared MV Area PHT 3.2 cm squared Mitral E to A Ratio 0.8 MV E' Velocity 39.5 cm/s Mitral E to MV E' Ratio 7.2 Mitral E to LV E' Lateral Ratio 6.3 Mitral E to LV E' Septal Ratio 8.6 TR Peak Velocity 205.1 cm/s TR Peak Gradient 16.8 mmHg TR Mean Velocity 166.9 cm/s TR Mean Gradient 12.0 mmHg TR Velocity Time Integral 70.2 cm Right Atrial Pressure 8.0 mmHg Pulmonary Artery Systolic Pressu 24.8 mmHg PV Peak Velocity 62.0 cm/s RV Acceleration Time 0.1 s RV Ejection Time 0.4 s RV AcT/ET 0.3 FINDINGS Left Ventricle Technically limited quality echocardiogram because of poor ultrasonic windows. Normal left ventricular size. LV systolic function is normal with EF of 50-55%.No regional wall motion abnormalities. Grade 1 diastolic dysfunction Right Ventricle The right ventricle is normal in size and function. Right Atrium The right atrium is normal in size. Left Atrium The left atrium is normal in size. Mitral Valve Structurally normal mitral valve without significant stenosis or prolapse. There is no mitral regurgitation. Aortic Valve Grossly normal . No significant stenosis. There is no aortic regurgitation. Tricuspid Valve Grossly normal. Mild tricuspid regurgitation. Pulmonary artery systolic pressure is normal. Pulmonic Valve Not well visualized Pericardium Normal pericardium without effusion. Aorta Normal ascending aorta dimension. CONCLUSIONS Technically limited quality echocardiogram because of poor ultrasonic windows. LV systolic function is normal with EF of 50-55% Grade 1 diastolic dysfunction Valves are not well visualized but grossly no significant valvular disease is noted. Mild tricuspid regurgitation. No comparison studies are available. Krzysztof Gavin MD (Electronically Signed) Final Date: 08 December 2021 18:39 S
[2021-12-08 12:30] LABS: NT Pro B Type Natriuretic Pept 283 pg/mL (0-125); Thyroid Stimulating Hormone 0.86 uIU/mL (0.27-4.20)
[2021-12-08 12:54] LABS: Procalcitonin 0.03 ng/mL (0-0.5)
[2021-12-08 13:22] LABS: Iron 81 ug/dL (37-145); Percent Saturation 44.2 % (20-50); Total Iron Binding Capacity 183 mcg/dl; Unsaturated Iron Binding 102 ug/dL (112-347)
[2021-12-08] MEDS: iohexol 350 mg/mL 100 mL Btl IV (13:56)
--- NOTE | 2021-12-08 17:06 | PM.PN ---
Subjective Subjective: Hospital course, Labs appreciated. Seen with family at bedside. Currently on 10 L saturating 92%. Denies any nausea, vomiting, headache. Has remained hemodynamically stable and afebrile. Appetite appropriate. States working with I-S and [employer] but not as much as she should be. Vitals/I&O/Wt Last Vital Signs Temp 97.3 F L 12/08/21 16:05 Pulse 66 12/08/21 16:05 Resp 20 H 12/08/21 16:05 BP 142/84 12/08/21 16:05 Pulse Ox 91 12/08/21 16:05 12/08/21 12/08/21 12/08/21 06:59 14:59 22:59 Intake Total 240 / 240 Output Total 1500 / 1500 400 / 400 Balance -1500 / -1380 -160 / -160 Weight last 48 hrs Weight 103.691 kg Physical Exam Narrative: General: No acute distress, AO x3 tired appearing HEENT: PERRLA, pupils bilaterally equal and reactive Chest: Bronchial breath sounds, occasional rhonchi over the lung mazariegos, equal good air entry bilaterally CVS: S1-S2 regular, no murmurs, no tachycardia, no gallops, no rubs Abdomen: Soft, nontender, no organomegaly, bowel sounds present Neuro: No focal deficits, no facial deformity, AO x3, power 5/5 in all limbs Data : 12/06/21 06:26 12/08/21 06:23 A&P Assessment and plan (1) Acute respiratory failure with hypoxia: Status: Acute (2) Pneumonia due to COVID-19 virus: Status: Acute (3) Afib: Status: Acute (4) Elevated blood pressure reading without diagnosis of hypertension: Status: Acute (5) Goals of care, counseling/discussion: Status: Acute (6) COVID-19 vaccination not done: Status: Acute Plan Hypoxia related to COVID-19 Currently on 10 L nasal cannula Finished remdesivir, Actemra and Decadron Last dose of Decadron on 12/08 Secondary to persistent health hypoxia will rule out PE with CTA. Check proBNP, procalcitonin, echocardiogram. Seems patient is 10 L negative since admission. Not sure of the numbers. For now continue with oral Lasix 20 mg. Start on DuoNebs every 6 hour, budesonide twice daily. Oxygen supplementation keeping saturation over 88%. A. fib without RVR: New diagnosis. Continue with metoprolol. Eliquis for anticoagulation. Constipation: Relieved DNR/DNI this was discussed with the patient and her daughter. Regular diet. Famotidine for PUD prophylaxis. Goals of care discussion: Discussed in detail with patient and patient's daughter at bedside. We discussed that patient will require pulmonary and physical rehab. We discussed unfortunately we do not have pulmonary rehab inpatient. Discussed patient would benefit from LTAC. Both patient and patient's daughter is agreeable. Did peer to peer with insurance. For now patient has been denied placement to LTAC. Updated to the daughter. We discussed further plans regarding home health versus SNF to be made as per progression within the next few days with physical therapy and oxygen supplementation. 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
[2021-12-08] MEDS: ascorbic acid 500 mg Tablet PO (17:37)
[2021-12-08] MEDS: ferrous gluconate 324 mg Tablet PO (17:37)
[2021-12-08] MEDS: dexamethasone 4 mg/mL INJ 6 MG IVP (17:37)
[2021-12-08] MEDS: budesonide 0.5 mg/2 mL Neb INHALATION (21:15)
[2021-12-09] VITALS (21 sets, daily range): BP systolic 123–154; BP diastolic 66–85; PULSE 60–81; RESP 15–20; TEMP 36.4–36.7; O2SAT 91–96
[2021-12-09] MEDS: ipratropium-albuterol 3 mL Neb INHALATION ×4 (02:47→19:57)
[2021-12-09 05:28] LABS: Basophils % 0.2 %; Hematocrit 45.8 % (37.0-47.0); Hemoglobin 15.2 g/dL (11.5-15.3); Lymphocytes # 1.1 10^3/uL (0.8-4.8); Mean Corpuscular HGB Conc 33.2 g/dL (30.0-36.0); Mean Corpuscular Hemoglobin 30.4 pg (28.0-34.0); Mean Corpuscular Volume 91.6 fl (81-99); Mean Platelet Volume 10.3 fL (7.4-10.4); Monocytes # 0.6 10^3/uL (0.2-0.9); Monocytes % 6.4 %; Neutrophils # 7.35 10^3/uL (1.8-7.7); Neutrophils % 79.8 %; Nucleated Red Blood Cells % 0 %; Platelet Count 234 10^3/cmm (130-400); Red Cell Distribution Width 13.3 % (12.1-15.1); White Blood Count 9.2 10^3/uL (4.0-10.0)
[2021-12-09 05:43] LABS: D Dimer 2.14 ug/mIFEU (0-0.59)
[2021-12-09 06:04] LABS: Alanine Aminotransferase 39 U/L (0-33); Albumin Level 3.2 g/dL (3.5-5.2); Alkaline Phosphatase 31 IU/L (35-105); Anion Gap 15.7 (5-19); Aspartate Amino Transferase 21 U/L (0-32); Blood Urea Nitrogen 19 mg/dL (8-23); Calcium 8.9 mg/dL (8.5-10.5); Carbon Dioxide 23 mmol/L (22-29); Chloride 101 mmol/L (98-107); Chol HDL Ratio 1.77 mg/dL (0.0-4.40); Cholesterol 108 mg/dL (0-200); Estmated Average Glucose 151; Globulin 2.7 g/dL (1.3-4.6); Glomerular Filtration Rate 99.1 mL/min (90-130); Glucose 203 mg/dL (65-115); HDL Cholesterol 61 mg/dL (60-100); Hemoglobin A1C 6.9 % (4.0-6.0); LDL Cholesterol Calculated 33 mg/dL (50-129); Osmolality Calculated 288 mOsm/kg (285-295); Potassium 4.7 mmol/L (3.5-5.1); Sodium 135 mmol/L (136-145); Total Bilirubin 0.8 mg/dL (0.15-1.2); Total Protein 5.9 g/dL (6.6-8.7); Triglycerides 72 mg/dL (0-150); VLDL Cholestrol Calculation 14 mg/dL (0-30)
[2021-12-09] MEDS: budesonide 0.5 mg/2 mL Neb INHALATION ×2 (08:10→19:57)
[2021-12-09] MEDS: ferrous gluconate 324 mg Tablet PO ×2 (09:41→18:02)
[2021-12-09] MEDS: cholecalciferol (vitamin D3) 1,000 unit Tablet 2000 UNIT PO (09:42)
[2021-12-09] MEDS: metoprolol tartrate 25 mg Tablet 50 MG PO ×2 (09:42→20:45)
[2021-12-09] MEDS: potassium chloride ER 20 mEq Tablet PO (09:42)
[2021-12-09] MEDS: pantoprazole DR 40 mg Tablet PO (09:42)
[2021-12-09] MEDS: FUROsemide 20 mg Tablet PO (09:42)
[2021-12-09] MEDS: ascorbic acid 500 mg Tablet PO ×2 (09:42→18:02)
[2021-12-09] MEDS: fluticasone nasal spray 16gm Btl 2 SPRAY NASAL (09:43)
[2021-12-09] MEDS: zinc gluconate 50 mg Tablet PO (09:43)
[2021-12-09] MEDS: apixaban 5 mg Tablet PO ×2 (09:49→20:45)
--- NOTE | 2021-12-09 13:23 | P.PN_ITS ---
Subjective Subjective: No acute events overnight. Today morning examination patient seen sitting up in chair. Working with I[employer] and [employer]. She is down to 6 L high flow nasal cannula today saturating more than 90%. Patient states she is feeling better. Denies any nausea, vomiting, headache. Asking when can she go home. We discussed that if she remains on less than 5 L of oxygen supplementation plan will be to send her home with oxygen. Discussed likely will be switching her oxygen therapy to oxygen pendent with the hope that oxygen requirements will trend down within next 48 hours. Vitals/I&O/Wt Last Vital Signs Temp 98.1 F 12/09/21 12:07 Pulse 69 12/09/21 12:07 Resp 18 12/09/21 12:07 BP 143/85 12/09/21 12:07 Pulse Ox 91 12/09/21 12:07 12/08/21 12/09/21 12/09/21 22:59 06:59 14:59 Intake Total 340 / 580 480 / 1060 120 / 120 Output Total 1600 / 2000 Balance 340 / 180 -1120 / -940 120 / 120 Physical Exam Narrative: General: No acute distress, AO x3 tired appearing HEENT: PERRLA, pupils bilaterally equal and reactive Chest: Bronchial breath sounds, occasional rhonchi over the lung mazariegos, equal good air entry bilaterally CVS: S1-S2 regular, no murmurs, no tachycardia, no gallops, no rubs Abdomen: Soft, nontender, no organomegaly, bowel sounds present Neuro: No focal deficits, no facial deformity, AO x3, power 5/5 in all limbs Data : 12/09/21 05:10 12/09/21 05:10 Micro: Microbiology 12/08/21 12:31 MRSA Culture - Final Nose 12/09/21 05:15 Blood Culture - Preliminary Blood SPECIMEN COLLECTED 12/09/21 05:10 Blood Culture - Preliminary Blood SPECIMEN COLLECTED A&P Assessment and plan (1) Acute respiratory failure with hypoxia: Status: Acute (2) Pneumonia due to COVID-19 virus: Status: Acute (3) Afib: Status: Acute (4) Elevated blood pressure reading without diagnosis of hypertension: Status: Acute (5) Goals of care, counseling/discussion: Status: Acute (6) COVID-19 vaccination not done: Status: Acute Plan Hypoxia related to COVID-19: Currently on 6 L. Has finished course of treatment with remdesivir, Actemra and Decadron Last dose of Decadron on 12/08 CT negative for PE. Procalcitonin negative. Echocardiogram shows an EF of 55% with grade 1 diastolic dysfunction, mild TR. For now continue with oral Lasix 20 mg. Additional 20 mg IV Lasix. Strict intake output charting. Continue with DuoNebs every 6 hour, budesonide twice daily. On discharge will transition to Advair and Spiriva. Oxygen supplementation keeping saturation over 88%. Switch to oxygen pendent today. A. fib without RVR: New diagnosis. Continue with metoprolol. Eliquis for anticoagulation. Constipation: Relieved DNR/DNI this was discussed with the patient and her daughter. Regular diet. Famotidine for PUD prophylaxis. Goals of care discussion: Discussed in detail with patient and patient's daughter at bedside. We discussed that patient will require pulmonary and physical rehab. We discussed unfortunately we do not have pulmonary rehab inpatient. Discussed patient would benefit from LTAC. Both patient and patient's daughter is agreeable. Did peer to peer with insurance. For now patient has been denied placement to LTAC. Updated to the daughter. We discussed further plans regarding home health versus SNF to be made as per progression within the next few days with physical therapy and oxygen supplementation. Plan for day: Continue with inhalation treatment with DuoNeb's and budesonide. Additional 20 mg IV Lasix. Switch to oxygen pendent today. Continue with aggressive pulmonary toilet. 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
[2021-12-09] MEDS: FUROsemide 10 mg/mL SDV 2mL 20 MG IVP (13:51)
[2021-12-09] MEDS: lanolin oint 7 gm 1 APPLIC TOPICAL (21:44)
[2021-12-10] VITALS (8 sets, daily range): BP systolic 114–138; BP diastolic 64–83; PULSE 63–94; RESP 17–20; TEMP 36.4–36.7; O2SAT 87–95
[2021-12-10] MEDS: ipratropium-albuterol 3 mL Neb INHALATION ×2 (02:30→08:11)
[2021-12-10] MEDS: budesonide 0.5 mg/2 mL Neb INHALATION (08:11)
[2021-12-10] MEDS: cholecalciferol (vitamin D3) 1,000 unit Tablet 2000 UNIT PO (08:43)
[2021-12-10] MEDS: pantoprazole DR 40 mg Tablet PO (08:44)
[2021-12-10] MEDS: potassium chloride ER 10 mEq Tablet PO (08:44)
[2021-12-10] MEDS: ferrous gluconate 324 mg Tablet PO (08:44)
[2021-12-10] MEDS: zinc gluconate 50 mg Tablet PO (08:44)
[2021-12-10] MEDS: apixaban 5 mg Tablet PO ×2 (08:44→15:27)
[2021-12-10] MEDS: FUROsemide 20 mg Tablet PO (08:44)
[2021-12-10] MEDS: ascorbic acid 500 mg Tablet PO (08:44)
[2021-12-10] MEDS: fluticasone nasal spray 16gm Btl 2 SPRAY NASAL (08:45)
[2021-12-10] MEDS: metoprolol tartrate 25 mg Tablet 50 MG PO (10:40)
--- NOTE | 2021-12-10 13:48 | P.DS_ITS ---
Discharge Providers Date of Admission: 11/27/21 17:26 Date of Discharge: December 10, 2021 Attending Provider at Admission: Kacie Rosado MD Attending Provider at Discharge: Mayank Colmenares MD Primary Care Provider: OSMIN Tolentino Diagnoses at Discharge Discharge Diagnosis (1) Acute respiratory failure with hypoxia: Status: Acute (2) Pneumonia due to COVID-19 virus: Status: Acute (3) Afib: Status: Acute (4) Elevated blood pressure reading without diagnosis of hypertension: Status: Acute (5) Goals of care, counseling/discussion: Status: Acute (6) COVID-19 vaccination not done: Status: Acute Reason for Visit Reason for Visit: SOB, WEAKNESS Brief History: History as per HPI: Peggy Villalobos is a 71 year old female who presented to the emergency room with increasing respiratory symptoms and malaise from COVID.? She started having symptoms between.? She was seen in the emergency room on November 19.? Covid testing was done and PCR ultimately came back positive.? She did receive prescription for dexamethasone and Zofran which she indicates that she took.? Her symptoms have progressively worsened over time despite this.? She has been taking some vitamins such as zinc and vitamin D.? Denies taking any other new medicines for management of her symptoms.? She has become progressively more short of breath, experiencing dizziness and increasing malaise as well as having difficulty attending to her activities of daily living prompting the visit to [facility] emergency room today.? On arrival via EMS oxygen saturations on 6 L bnc were in the upper 80s.? Patient was transitioned to heated high flow at 5 L, 50% with improvement in oxygen saturations though they remain at the lower end.? Chest x- ray showed bilateral opacities consistent with known COVID-19.? CRP was around 60 and ferritin was 900.? With degree of oxygen requirement and elevation in inflammatory markers she is being admitted for further treatment and evaluation as indicated.? She has already been started on remdesivir and given some IV dexamethasone.? She has not received Covid vaccination.? She denies any GI symptoms beyond poor appetite.? She remains febrile at times.? No reports of any chest pain.? She has not had any syncopal episodes Hospital Course Hospital Course Patient went to the hospital further evaluation and management of severe hypoxic respiratory failure secondary COVID-19 pneumonia. She was started on treatment with IV remdesivir, dexamethasone and inhalation treatment along with aggressive pulmonary toilet. Her oxygenation improved gradually. During hospitalization she was also found to have persistent atrial fibrillation for which she was started on rate limiting drugs with metoprolol and anticoagulation with Eliquis. Pulmonary embolism was ruled out with CTA. Her hospitalization was prolonged by her developing significant weakness and high oxygen requirements for last 1 week requiring as high as 8 to 10 L. For last 2 days patient's oxygen supplementation has been improving and is currently requiring 4 L of oxygen with oxygen reservoir/pendent. Patient has been walking with physical therapist and has been walking to the bathroom by herself with a walker. She has been discharged in hemodynamically stable condition. She is discharged with following advices. Advised to take inhalation treatment with Advair and Spiriva daily. 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 Advised to follow-up with his primary care provider and his motor polarizer within the next 4 to 7 days. Can take his COVID-19 vaccination in 3 months. Advised to continue following social distancing and isolation protocol for next 10 days. Advised to come back to the ER if fever of more than 101 Fahrenheit, more difficulty breathing than usual or requiring higher oxygen supplementation. She is to take Lasix 40 mg oral daily for next 2 weeks. After that to take on as-needed basis. After 2 weeks she can check her body weight daily and if her body weight increases by 5 pounds she should take her Lasix. She is to follow- up with her primary care provider within next 1 week for repeat BMP. She is to follow-up with pulmonology within next 1 week for the possibility of pulmonary rehab as an outpatient. Care plan was discussed in detail with patient and patient's daughter. Both verbalized understanding. Physical Exam Narrative: General: No acute distress, AO x3 HEENT: PERRLA, pupils bilaterally equal and reactive Chest: Bronchial breath sounds, occasional rhonchi over the lung mazariegos, equal good air entry bilaterally CVS: S1-S2 regular, no murmurs, no tachycardia, no gallops, no rubs Abdomen: Soft, nontender, no organomegaly, bowel sounds present Neuro: No focal deficits, no facial deformity, AO x3, power 5/5 in all limbs Discharge Data Studies Completed and Pending Completed Studies During Hospitalization Category Date Time Status CTA chest [CT angio chest PE protcl [id number]] Routine Cat Scan 11/27/21 19:14 Completed CTA chest [CT angio chest PE protcl [id number]] Routine Cat Scan 12/08/21 11:42 Completed XR chest 1V portable [id number] Routine Exams 12/01/21 09:04 Completed XR chest 1V portable [id number] Stat Exams 11/27/21 12:52 [place] [id number] Routine Ultrasound 12/03/21 10:12 Completed CV. echo complete* [id number] Routine Ultrasound 12/08/21 11:58 Completed Pending at discharge Category Date Time Status Blood Culture AM LABS Lab 12/09/21 05:15 Results Radiology Impressions Chest X-Ray 12/01/21 09:04 IMPRESSION: Lung findings are of uncertain chronicity since previous normal examination was in 2012. The findings are compatible with subacute Covid pneumonitis superimposed on abnormal lung. Venous Duplex 12/03/21 10:12 IMPRESSION: No evidence of deep vein thrombosis, bilateral lower extremities. Chest CTA 12/08/21 11:42 IMPRESSION: 1. Proximal main pulmonary arteries are normal. No evidence of pulmonary embolus. 2. Diffuse airspace infiltrates mainly in a subpleural location compatible with Covid 19 pneumonia. Slightly more confluence today compared to previous. 3. No other significant changes compared to previous. 4. Small esophageal hiatal hernia. Echocardiogram: CONCLUSIONS ?Technically limited quality echocardiogram because of poor?ultrasonic windows. ?LV systolic function is normal with EF of 50-55%. ?Grade 1 diastolic dysfunction ?Valves are not well visualized but grossly no significant?valvular disease is noted. ?Mild tricuspid regurgitation. ?No comparison studies are available. ?Krzysztof Gavin MD ?(Electronically Signed) ?Final Date:? ? ? 08 December 2021 ? 18:39 Laboratory Results WBC 9.2 10^3/uL (4.0-10.0) 12/09/21 05:10 RBC 5.00 10^6/uL (4.1-5.3) 12/09/21 05:10 Hgb 15.2 g/dL (11.5-15.3) 12/09/21 05:10 Hct 45.8 % (37.0-47.0) 12/09/21 05:10 MCV 91.6 fl (81-99) 12/09/21 05:10 MCH 30.4 pg (28.0-34.0) 12/09/21 05:10 MCHC 33.2 g/dL (30.0-36.0) 12/09/21 05:10 RDW 13.3 % (12.1-15.1) 12/09/21 05:10 Plt Count 234 10^3/cmm (130-400) 12/09/21 05:10 MPV 10.3 fL (7.4-10.4) 12/09/21 05:10 Neut % (Auto) 79.8 % 12/09/21 05:10 Lymph % (Auto) 12.0 % 12/09/21 05:10 Hardin % (Auto) 6.4 % 12/09/21 05:10 Eos % (Auto) 0.0 % 12/09/21 05:10 Baso % (Auto) 0.2 % 12/09/21 05:10 Neut # (Auto) 7.35 10^3/uL (1.8-7.7) 12/09/21 05:10 Lymph # (Auto) 1.1 10^3/uL (0.8-4.8) 12/09/21 05:10 Hardin # (Auto) 0.6 10^3/uL (0.2-0.9) 12/09/21 05:10 Eos # (Auto) 0.0 10^3/uL (0.0-0.8) 12/09/21 05:10 Baso # (Auto) 0.0 10^3/uL (0.0-0.1) 12/09/21 05:10 Nucleated RBC % (auto) 0 % 12/09/21 05:10 Nucleated RBCs # 0.0 /100WBC 12/09/21 05:10 PT 14.30 SECONDS (12.1-14.9) 11/27/21 13:13 INR 1.08 (0.8-1.2) 11/27/21 13:13 APTT 35.1 SECONDS (23.9-36.7) 11/29/21 04:06 D-Dimer 2.14 ug/mIFEU (0-0.59) H 12/09/21 05:10 Specimen Type Arterial 12/08/21 03:44 Sample Site Radial, left 02/18/22 03:44 ABG pH 7.45 (7.35-7.45) 12/08/21 03:44 ABG pCO2 39.3 mmHg (35-45) 12/08/21 03:44 ABG pO2 74.1 mmHg (80.0-100.0) L 12/08/21 03:44 ABG HCO3 27.0 mmol/L (22-26) H 12/08/21 03:44 ABG Base Excess 2.7 mmol/L (-2.0-2.0) H 12/08/21 03:44 Oli Test Pos 12/08/21 03:44 Hematocrit 45.5 % (37-47) 12/08/21 03:44 O2 Delivery Device Nc 12/08/21 03:44 O2 Liters/Min 10.0 % 12/08/21 03:44 FiO2 75.0 % 12/05/21 04:00 Supervisor Past[employer] ID Hensa 12/08/21 03:44 Sodium 135 mmol/L (136-145) L 12/09/21 05:10 Potassium 4.7 mmol/L (3.5-5.1) 12/09/21 05:10 Chloride 101 mmol/L (98-107) 12/09/21 05:10 Carbon Dioxide 23 mmol/L (22-29) 12/09/21 05:10 Anion Gap 15.7 (5-19) 12/09/21 05:10 BUN 19 mg/dL (8-23) 12/09/21 05:10 Creatinine 0.6 mg/dL (0.5-0.9) 12/09/21 05:10 GFR Calculation 99.1 mL/min (90-130) 12/09/21 05:10 Glucose 203 mg/dL (65-115) H 12/09/21 05:10 Estimat Average Glucose 151 12/09/21 05:10 Hemoglobin A1c 6.9 % (4.0-6.0) H 12/09/21 05:10 Calculated Osmolality 288 mOsm/kg (285-295) 12/09/21 05:10 Lactic Acid 1.3 mmol/L (0.5-2.2) 11/27/21 13:13 Calcium 8.9 mg/dL (8.5-10.5) 12/09/21 05:10 Phosphorus 3.1 mg/dL (2.5-4.5) 11/28/21 04:23 Magnesium 2.5 mg/dL (1.7-2.3) H 11/28/21 04:23 Iron 81 ug/dL (37-145) 12/08/21 06:23 TIBC 183 mcg/dl 12/08/21 06:23 % Saturation 44.2 % (20-50) 12/08/21 06:23 Unsat Iron Binding 102 ug/dL (112-347) L 12/08/21 06:23 Ferritin 920 ng/mL (15-150) H 11/27/21 12:47 Total Bilirubin 0.8 mg/dL (0.15-1.2) 12/09/21 05:10 AST 21 U/L (0-32) 12/09/21 05:10 ALT 39 U/L (0-33) H 12/09/21 05:10 Alkaline Phosphatase 31 IU/L (35-105) L 12/09/21 05:10 Creatine Kinase 51 U/L (26-192) 11/27/21 12:47 Troponin T Gen 5 ng/L 11 ng/L (0-10) H 11/27/21 12:47 C-Reactive Protein 3.0 mg/L (0.0-4.9) 12/09/21 05:10 C-Reactive Protein Cancelled 12/09/21 05:10 NT-Pro-B Natriuret Pep 283 pg/mL (0-125) H 12/08/21 06:23 Total Protein 5.9 g/dL (6.6-8.7) L 12/09/21 05:10 Albumin 3.2 g/dL (3.5-5.2) L 12/09/21 05:10 Globulin 2.7 g/dL (1.3-4.6) 12/09/21 05:10 Triglycerides 72 mg/dL (0-150) 12/09/21 05:10 Triglycerides Cancelled 12/09/21 05:10 Cholesterol 108 mg/dL (0-200) 12/09/21 05:10 Cholesterol Cancelled 12/09/21 05:10 LDL Cholesterol, Calc 33 mg/dL (50-129) L 12/09/21 05:10 LDL Cholesterol, Calc Cancelled 12/09/21 05:10 Total VLDL Cholesterol 14 mg/dL (0-30) 12/09/21 05:10 Total VLDL Cholesterol Cancelled 12/09/21 05:10 HDL Cholesterol 61 mg/dL (60-100) 12/09/21 05:10 HDL Cholesterol Cancelled 12/09/21 05:10 Cholesterol/HDL Ratio 1.77 mg/dL (0.0-4.40) 12/09/21 05:10 Cholesterol/HDL Ratio Cancelled 12/09/21 05:10 Procalcitonin 0.03 ng/mL (0-0.5) 12/08/21 06:23 TSH 0.86 uIU/mL (0.27-4.20) 12/08/21 06:23 Vitals Last Vital Signs Temp 98.1 F 12/10/21 10:50 Pulse 94 12/10/21 10:50 Resp 17 12/10/21 10:50 BP 115/74 12/10/21 10:50 Pulse Ox 92 12/10/21 10:50 Discharge Plan Discharge Patient Disposition: Home Health Service Condition: Stable Prescriptions: New potassium chloride 10 mEq Tablet Extended Release 10 meq PO DAILY 30 Days Qty: 30 0RF Vitamin C 500 mg Tablet 500 mg PO BID 14 Days Qty: 28 0RF ferrous gluconate 324 mg (37.5 mg iron) Tablet 324 mg PO BIDWM 30 Days Qty: 60 0RF Eliquis 5 mg Tablet 5 mg PO BID@0900,2100 30 Days Qty: 60 0RF Lasix 40 mg tablet 40 mg PO DAILY Qty: 30 0RF Advair Diskus 250-50 mcg/dose blister with device 1 inh inhalation BID 14 Days Qty: 28 0RF Spiriva with HandiHaler 18 mcg capsule, w/inhalation device 1 cap inhalation DAILY Qty: 14 0RF Rx Instructions: puncture 1 cap using device; one dose = 2 inhalations Continued hydroxyzine HCl 10 mg tablet 10 mg PO TID PRN (Reason: Itching) 0RF omeprazole 40 mg capsule,delayed release(DR/EC) 40 mg PO DAILY PRN (Reason: Stomach Upset) 0RF Vitamin D3 125 mcg (5,000 unit) Tablet 125 mcg PO DAILY 0RF zinc 50 mg Tablet 50 mg PO DAILY 14 Days Qty: 14 0RF Discontinued hydrochlorothiazide 25 mg tablet 25 mg PO DAILY 0RF potassium gluconate 500 mg (83 mg) Tablet 500 mg PO DAILY 0RF Discharge Orders: Discharge Order (Routine); Ordered 12/10/21 Ordered By: Mayank Colmenares Referrals: Tahir Garcia MD [Physician] - 2 weeks ([facility] will call you Saturday and schedule an appt to see Dr. Garcia for persistent hypoxic post COVID-19. Possibly need of pulmonary rehab) Mali Kovacs FNP [Primary Care Provider] - 4-7 days (Please call Mali Kovacs's office and schedule an appointment to be seen within 7 days.) Discharge Diet: Cardiac Discharge Activity: Resume usual activity and Increase activity as tolerated Patient Instructions: Opioid Safety Activity Restrictions/Additional Instructions: Advised to take inhalation treatment with Advair and Spiriva daily. 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 Advised to follow-up with his primary care provider and his motor polarizer within the next 4 to 7 days. Can take his COVID-19 vaccination in 3 months. Advised to continue following social distancing and isolation protocol for next 10 days. Advised to come back to the ER if fever of more than 101 Fahrenheit, more difficulty breathing than usual or requiring higher oxygen supplementation. Continue taking anticoagulation with Eliquis which is a blood thinner going forward given high chances of stroke with A. fib. He is supposed to be on Eliquis 5 mg twice daily. Take metoprolol twice daily to control heart rate. Repeat BMP in 1 week with your primary care provider Take Lasix 40 mg oral daily for now for next 2 weeks. Check BMP with your primary care provider next 1 week. After 2 weeks you can take Lasix on as-needed basis. At that time check your body weight and if your body weight increases by 5 pounds of your weight today you can take an extra pill of Lasix. Discharge Attestations Time Spent in Discharge Care*: greater than 30 min Specific Discharge Activities: educating patient, educating and/or supporting family/caregiver, discussing with pcp/other providers, discussing with egg caser/social workers/dc planners, documenting/other paperwork and evaluating patient/reviewing data Status at Discharge: Cognitive status at discharge: cognitively intact , Behavioral status at discharge: cooperative , Functional status at discharge: independent ambulation , Overall status at discharge: patient is progressing back to baseline Quality Metrics Clinical Quality Measures [ No reported AMI, CVA or VTE this stay] Coding Level of Care Code Acute Chg FW DC note Diagnoses Acute respiratory failure with hypoxia J96.01 Pneumonia due to COVID-19 virus U07.1; J12.82 Afib I48.91 Elevated blood pressure reading without diagnosis of hypertension R03.0 Goals of care, counseling/discussion Z71.89 COVID-19 vaccination not done Z28.9
--- NOTE | 2021-12-10 14:38 | PC.SOCIAL ---
IMM UPDATED IMM dated and initialed and copy given to patient
--- NOTE | 2021-12-10 15:27 | PC.NURSE ---
eliquis given to accomadate discharge - pt pharmacy closed today
== END 2021-12-10 16:00 | disposition home health service (06) | DRG 177 ==
LOC: ER 12:14 → MEDSURG 17:51
PROVIDERS: Internal Medicine; Admitting Provider Hospitalist; Emergency Provider Family Medicine; PCP Nurse Practitioner Family; Visit Provider Student in an Organized Health Care Education/Training Program
DX: U07.1 COVID-19 (principal); J12.89 Other viral pneumonia; J96.01 Acute respiratory failure with hypoxia; R03.0 Elevated blood-pressure reading, without diagnosis of hypertension; E66.9 Obesity, unspecified; Z68.35 Body mass index [BMI] 35.0-35.9, adult; F41.9 Anxiety disorder, unspecified; K21.9 Gastro-esophageal reflux disease without esophagitis; Z28.21 Immunization not carried out because of patient refusal; Z66 Do not resuscitate; K59.00 Constipation, unspecified; I48.91 Unspecified atrial fibrillation
CPT/HCPCS: 36415; 36600; 71045; 71275; 80048; 80053; 80061; 82550; 82728; 82803; 83036; 83540; 83550; 83605; 83735; 83880; 84100; 84145; 84443; 84484; 85025; 85378; 85610; 85730; 86140; 87040; 87070; 87150; 87205; 87641; 93005; 93306; 93970; 94640; 94660; 94664; 96365; 96372; 96375; 97110; 97116; 97161; 97530; 99285; J0692; J0696; J1100; J1650; J1940; J3262; J3490; J7626; Q9967

== ENCOUNTER → 2021-12-27 08:27 | Outpatient (BNVA) | payer MEDICARE, SELFPAY | PROVIDERS: PCP Nurse Practitioner Family; Visit Provider Internal Medicine Pulmonary Disease | DX: Z09 Encounter for follow-up examination after completed treatment for conditions other than malignant neoplasm (principal); J18.9 Pneumonia, unspecified organism; U09.9 Post COVID-19 condition, unspecified; K21.9 Gastro-esophageal reflux disease without esophagitis; I48.91 Unspecified atrial fibrillation | CPT/HCPCS: 99204 ==

== ENCOUNTER → 2022-02-28 10:29 | Outpatient (BNVA) | payer MEDICARE, SELFPAY | PROVIDERS: PCP Nurse Practitioner Family; Visit Provider Internal Medicine Pulmonary Disease | DX: Z09 Encounter for follow-up examination after completed treatment for conditions other than malignant neoplasm (principal); U09.9 Post COVID-19 condition, unspecified; G47.34 Idiopathic sleep related nonobstructive alveolar hypoventilation; K21.9 Gastro-esophageal reflux disease without esophagitis | CPT/HCPCS: 99214 ==

== ENCOUNTER → 2022-04-30 09:10 | Outpatient (BNVA) | payer MEDICARE, SELFPAY | PROVIDERS: PCP Nurse Practitioner Family; Visit Provider Internal Medicine Pulmonary Disease | DX: U09.9 Post COVID-19 condition, unspecified (principal); G47.34 Idiopathic sleep related nonobstructive alveolar hypoventilation; K21.9 Gastro-esophageal reflux disease without esophagitis | CPT/HCPCS: 99214 ==

== ENCOUNTER 2022-05-23 13:44 | Outpatient (CLI) | payer MEDICARE, MEDICAID, SELFPAY ==
--- NOTE | 2022-05-23 14:22 | PFTS_ITS ---
Date of Study:05/23/22 Date of Dictation: MECHANICS: Forced vital capacity (FVC) is reduced. Forced expiratory volume in one second (FEV1) is normal. FEV1/FVC is normal. FLOW VOLUME LOOP: Normal LUNG VOLUMES: Total lung capacity (TLC) is reduced. Residual volume (RV) is reduced. DIFFUSING CAPACITY FOR CARBON MONOXIDE: Mildly reduced. INTERPRETATION: The postbronchodilator spirometry is consistent with mild restriction. There is no significant postbronchodilator response. Lung volumes are consistent with moderate restriction. Gas exchange (DLCO) is mildly reduced. MTDD
== END 2022-05-23 13:45 | disposition home or self-care (01) ==
PROVIDERS: PCP Nurse Practitioner Family; Visit Provider Internal Medicine Pulmonary Disease
DX: U09.9 Post COVID-19 condition, unspecified (principal); G47.34 Idiopathic sleep related nonobstructive alveolar hypoventilation
CPT/HCPCS: 94060; 94618; 94726; 94729; J7614

== ENCOUNTER → 2022-08-01 10:33 | Outpatient (BNVA) | payer MEDICARE, MEDICAID, SELFPAY | PROVIDERS: PCP Nurse Practitioner Family; Visit Provider Internal Medicine Pulmonary Disease | DX: J98.4 Other disorders of lung (principal); U09.9 Post COVID-19 condition, unspecified; G47.34 Idiopathic sleep related nonobstructive alveolar hypoventilation; K21.9 Gastro-esophageal reflux disease without esophagitis; I48.20 Chronic atrial fibrillation, unspecified; Z79.01 Long term (current) use of anticoagulants | CPT/HCPCS: 99214 ==

== ENCOUNTER 2022-08-31 16:07 | Outpatient (CLI) | payer MEDICARE, MEDICAID, SELFPAY ==
--- NOTE | 2022-08-31 16:22 | CT_ITS ---
WS: [id number] CT CHEST TECHNIQUE: Noncontrast CT of the chest with coronal and sagittal reformatted images. CLINICAL INFORMATION: f/u COVID pneumonia COMPARISON: CTA chest 12/08/21 DLP: 750.[address] scans at [facility] use at least one of these dose optimization techniques: automated e xposure control; mA and/or kV adjustment per patient size (includes targeted exams where dose is matc hed to clinical indication); or iterative reconstruction. FINDINGS: Moderate chronic emphysematous changes. No acute pulmonary infiltrates. No focal pneumonia or pleural fluid. Previously described groundglass infiltrates resolved compared to previous. Scattered areas o f subpleural subsegmental atelectasis and fibrosis. Calcified granulomas. 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 Normal caliber thoracic aorta. Aortic calcification. Proximal main pulmonary arteries are normal. No mediastinal or hilar lymphadenopathy. No axillary lymphadenopathy. Adrenal glands are normal. Splenic granulomas. Small esophageal hiatal hernia. Hypertrophic changes thoracic spine.Disc osteophyte comp christine T8-T9 with moderate central canal stenosis. CT/CT chest wo con [id number] IMPRESSION: 1. Previously described groundglass infiltrates have essentially resolved comp ared to previous. Residual areas of subpleural subsegmental atelectasis and fib rosis. 2. No focal pneumonia or pleural fluid. 3. No mediastinal or hilar lymphadenopathy. 4. Small esophageal hiatal hernia 5. 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
== END 2022-08-31 16:08 | disposition home or self-care (01) ==
LOC: RAD 16:08
PROVIDERS: PCP Nurse Practitioner Family; Visit Provider Internal Medicine Pulmonary Disease
DX: U07.1 COVID-19 (principal); J12.82 Pneumonia due to coronavirus disease 2019; K44.9 Diaphragmatic hernia without obstruction or gangrene; J84.10 Pulmonary fibrosis, unspecified
CPT/HCPCS: 71250

== ENCOUNTER → 2023-01-21 15:17 | Outpatient (BNVA) | payer MEDICARE, MEDICAID, SELFPAY | PROVIDERS: PCP Nurse Practitioner Family; Visit Provider Internal Medicine Pulmonary Disease | DX: R06.02 Shortness of breath (principal); G47.34 Idiopathic sleep related nonobstructive alveolar hypoventilation; K21.9 Gastro-esophageal reflux disease without esophagitis; J98.4 Other disorders of lung; U09.9 Post COVID-19 condition, unspecified; K44.9 Diaphragmatic hernia without obstruction or gangrene; I48.20 Chronic atrial fibrillation, unspecified; Z79.01 Long term (current) use of anticoagulants | CPT/HCPCS: 99214 ==

== ENCOUNTER 2023-03-07 15:17 | Outpatient (CLI) | payer MEDICARE, MEDICAID, SELFPAY ==
--- NOTE | 2023-03-07 15:29 | XR_ITS ---
WS: [email or web address] Left knee, 3 views, 03/07/2023 Clinical Data: PAIN IN LEFT KNEE Comparison: Left knee, 05/25/2021 Findings: No fractures or dislocations are seen. There is minimal medial joint compartment narrowing with a sma ll medial femoral condyle spur. The patella is intact with an anterior superior spur and a small post erior superior spur. The soft tissues are unremarkable. XR/XR knee LT 1-2V [id number] Impression: Mild osteoarthritis of the left knee Kellgren-Mariano Classification: grade 1 (doubtful): doubtful joint space narr owing and possible osteophytic lipping
== END 2023-03-07 15:18 | disposition home or self-care (01) ==
LOC: RAD 15:24
PROVIDERS: PCP Nurse Practitioner Family; Visit Provider Nurse Practitioner Family
DX: M25.562 Pain in left knee (principal)
CPT/HCPCS: 73560

== ENCOUNTER → 2023-06-05 15:23 | Outpatient (BNVA) | payer MEDICARE, MEDICAID, SELFPAY | PROVIDERS: PCP Nurse Practitioner Family; Referring Provider Nurse Practitioner Family; Visit Provider Specialist | DX: M17.0 Bilateral primary osteoarthritis of knee | CPT/HCPCS: 73560; 73565; 99203 ==

== ENCOUNTER 2023-09-27 15:10 | Outpatient (CLI) | payer MEDICARE, MEDICAID, SELFPAY ==
--- NOTE | 2023-09-27 15:23 | XR_ITS ---
WS: [email or web address] Chest 2 views, 09/27/2023 Clinical Data: SHORTNESS OF BREATH Comparison: Portable chest, 12/01/2021 Findings: No nodules, masses or effusions are seen. The heart is normal. The pulmonary vascularity is not increased. No pneumonia or pneumothorax is seen. The aortic arch and descending thoracic aorta s how tortuosity. The diaphragms are flattened. Impression: Atherosclerosis and hyperinflation.
== END 2023-09-27 15:11 | disposition home or self-care (01) ==
LOC: RAD 15:16
PROVIDERS: PCP Nurse Practitioner Family; Visit Provider Nurse Practitioner Family
DX: R06.02 Shortness of breath (principal); R91.8 Other nonspecific abnormal finding of lung field; I70.90 Unspecified atherosclerosis
CPT/HCPCS: 71046

== ENCOUNTER 2023-10-09 14:28 | Outpatient (CLI) | payer OTHER, MEDICAID, SELFPAY ==
--- NOTE | 2023-10-09 14:33 | USCV_ITS ---
Peggy Villalobos Age: 72 Gender: F : 1950 Exam Date: 10/09/2023 15:03 Ordering Phys: Mali Kovacs [employer] MA[employer]GER [employer]ES Technologist: CT Exam Location: [facility] [id number] Indication: sob BP: 135 / 79 HR: 70 Rhythm: Sinus Technical Quality: Adequate MEASUREMENTS (Male / Female) Normal Values 2D ECHO LV Chamber Size 5.8 cm RV Chamber Size 3.1 cm LVOT Diameter 2.1 cm LV Ejection Fraction MOD 2C 43.2 % LV Ejection Fraction 2C AL 44.6 % LA Diameter 3.9 cm LA Width 4.0 cm LA Height 6.1 cm RA Width 3.9 cm RA Height 4.8 cm Aorta at Sinotubular Diameter 2.3 cm IVC Diameter 1.7 cm M-MODE Aortic Annulus Diameter 2.9 cm LA Ao Ratio MM 1.5 MV E Point Septal Separation 1.8 cm DOPPLER AV Peak Velocity 139.0 cm/s LVOT Peak Velocity 113.0 cm/s AV Area Cont Eq vti 2.7 cm squared AV Area Cont Eq pk 2.8 cm squared MV E' Velocity 12.0 cm/s TR Peak Velocity 145.7 cm/s TR Peak Gradient 8.5 mmHg TV Peak E Velocity 51.0 cm/s Right Atrial Pressure 3.0 mmHg Pulmonary Artery Systolic Pressu 11.5 mmHg PV Peak Velocity 100.0 cm/s FINDINGS Left Ventricle Mild diffuse hypokinesia of the septum and the LV apex.. LV ejection fraction on 45%. Right Ventricle Normal right ventricular size and systolic function. Right Atrium The right atrium is normal in size. Left Atrium Mildly increased left atrial size. Mitral Valve No gross abnormalities noted Aortic Valve Thickened aortic valve. Tricuspid Valve Mild tricuspid valve regurgitation. Pulmonic Valve Pulmonic valve not well visualized. Pericardium Normal pericardium without effusion. Aorta Normal ascending aorta dimension. IVC The inferior vena cava appears normal. CONCLUSIONS Mild diffuse hypokinesia of the septum and the LV apex.. LV ejection fraction on 45%. Mildly increased left atrial size. Thickened aortic valve. Mild tricuspid valve regurgitation. Estimated pulmonary artery peak systolic pressure within normal limits There is no pericardial effusion. There are no intracardiac masses. Compared to the study from 12/08/2021, there is slight decline in the LV ejection fraction Dr Jeannie Mata MD FACC (Electronically Signed) Final Date: 13 October 2023 23:04 S
== END 2023-10-09 14:29 | disposition home or self-care (01) ==
LOC: RAD 14:28
PROVIDERS: PCP Nurse Practitioner Family; Visit Provider Nurse Practitioner Family
DX: I08.2 Rheumatic disorders of both aortic and tricuspid valves (principal); R06.02 Shortness of breath; R53.1 Weakness
CPT/HCPCS: 93306

== ENCOUNTER → 2024-01-06 12:51 | Outpatient (BNVA) | payer OTHER, MEDICAID, SELFPAY | PROVIDERS: PCP Nurse Practitioner Family; Referring Provider Nurse Practitioner Family; Visit Provider Specialist | DX: M17.0 Bilateral primary osteoarthritis of knee | CPT/HCPCS: 73560; 73565; 99214 ==

== ENCOUNTER 2024-02-10 14:43 | Outpatient (CLI) | payer OTHER, MEDICAID, SELFPAY ==
--- NOTE | 2024-02-10 15:15 | MR_ITS ---
WS: [email or web address] MRI RIGHT KNEE NONCONTRAST TECHNIQUE: Axial PD, coronal PD fat sat, coronal PD, sagittal PD, and sagittal PD fat-sat images obta ined. CLINICAL INFORMATION: right knee pain COMPARISON: None. FINDINGS: Advanced tricompartment arthritis RIGHT knee. Distal quadriceps and patellar tendons are intact. Hype rtrophic patella. Small suprapatellar effusion. ACL and PCL appear intact. Slightly depressed fractur e with contusion involving the posterior lateral tibial plateau. Associated edema. Small fracture gonzalo ft visualized. Depression measures approximately 2.5 mm. Mild diffuse edema in the adjacent tibia ext ending into the metaphysis. Advanced chondromalacia patella. Normal medial and lateral patellar retinaculum. Diffuse soft tissue edema about the knee. Medial and lateral collateral ligaments appear intact. Normal biceps femoris. N ormal popliteal fossa. Chronic thinning of the medial meniscus. Tear with blunting of the anterior horn lateral meniscus wit h diffuse edema. Peripheral extrusion of the lateral meniscus. Small amount of fluid and edema extend ing about the arcuate ligament at the fibula head. Recommend correlation for posterolateral corner in jury. IMPRESSION: 1. Complex bucket-handle type tear involving the anterior horn lateral meniscus extending to the per iphery and meniscal root. Peripheral extrusion of the lateral meniscus. Blunting of the anterior horn . 2. Lateral meniscus posterior horn fragment extending into the posterior inferior intercondylar notc h adjacent to the PCL. 3. Acute slightly depressed fracture involving the posterolateral tibial plateau with depression mirna suring 2.5 mm. Associated diffuse edema extending into the tibial metaphysis. 4. ACL and PCL appear intact. 5. Small amount of fluid and edema extending along the arcuate ligament at the fibular head. Recomme nd correlation for posterolateral corner injury. Lateral collateral ligament and biceps femoris appea r intact. 6. Advanced chondromalacia patella. 7. Increased signal in the popliteus suspicious suspicious for partial tear. 8. Small suprapatellar effusion. Outbridge grading: grade IV: full-thickness cartilage loss with underlying bone reactive changes
== END 2024-02-10 14:44 | disposition home or self-care (01) ==
LOC: RAD 14:43
PROVIDERS: PCP Nurse Practitioner Family; Visit Provider Specialist
DX: M17.0 Bilateral primary osteoarthritis of knee (principal); S83.200A Bucket-handle tear of unspecified meniscus, current injury, right knee, initial encounter; S82.141A Displaced bicondylar fracture of right tibia, initial encounter for closed fracture; M22.41 Chondromalacia patellae, right knee; X58.XXXA Exposure to other specified factors, initial encounter
CPT/HCPCS: 73721

== ENCOUNTER → 2024-03-02 08:43 | Outpatient (BNVA) | payer OTHER, MEDICAID, SELFPAY | PROVIDERS: PCP Nurse Practitioner Family; Referring Provider Nurse Practitioner Family; Visit Provider Psychiatry & Neurology Neurology | DX: G25.2 Other specified forms of tremor (principal); R51.9 Headache, unspecified; I48.91 Unspecified atrial fibrillation; Z79.01 Long term (current) use of anticoagulants; M17.11 Unilateral primary osteoarthritis, right knee | CPT/HCPCS: 73562; 99203; 99214 ==

== ENCOUNTER 2024-04-22 14:30 | Outpatient (CLI) | payer OTHER, MEDICAID, SELFPAY ==
--- NOTE | 2024-04-22 15:15 | MR_ITS ---
WS: [email or web address] MRA CAROTID WITHOUT AND WITH GADOLINIUM ENHANCEMENT TECHNIQUE: Axial 2-D TOF and gadolinium bolus images obtained with axial images and axial, sagittal, and coronal 2-D reformatted images. CLINICAL INFORMATION: R25.1 - Tremor, unspecified COMPARISON: None. FINDINGS: RIGHT: RIGHT common carotid artery is patent. No significant RIGHT ICA stenosis. RIGHT ICA is patent to the skull base. LEFT: LEFT common carotid artery is patent. LEFT common carotid artery arises from the innominate. No signi ficant LEFT ICA stenosis. LEFT ICA is patent to the skull base. LEFT dominant vertebral artery. Smaller but patent RIGHT vertebral artery. Proximal subclavian arteri es are patent. MR/MR angio neck w con* [id number] IMPRESSION: Unremarkable neck MRA
[2024-04-22] MEDS: gadobenate dimeglumine 20 mL vial IV (15:48)
--- NOTE | 2024-04-22 16:00 | MR_ITS ---
WS: [email or web address] MRI HEAD WITH CONTRAST TECHNIQUE: Sagittal T1, T2 axial, T2 axial FLAIR, axial susceptibility weighted imaging, axial diffus ion weighted images, and coronal T2 images were obtained. Pre and post-T1 axial and post T1 coronal i mages. ADC and FSPGR images. CLINICAL INFORMATION: R25.1 - Tremor, unspecified COMPARISON: None. FINDINGS: No evidence of restricted diffusion to suggest acute ischemia. Mild small vessel changes with mild pa renchymal volume loss. 2 small chronic lacunar infarcts in the bilateral cerebellum. Normal vascular flow voids at the skull base. No extra-axial fluid collections. No evidence of mass or mass effect. Paranasal sinuses and mastoid air cells are well aerated. Normal posterior nasopharynx. No hemosiderin on susceptibility-weighted images. Normal optic chiasm and pituitary infundibulum. Tem poral lobes and hippocampal formations are normal in appearance. No abnormal gadolinium enhancement. Normal dural venous sinuses. MR/MR head wo/w con [id number] IMPRESSION: 1. No evidence of restricted diffusion to suggest acute ischemia. 2. Mild small vessel changes with mild parenchymal volume loss. 3. No abnormal gadolinium enhancement. 4. No hemosiderin on the susceptibly weighted images. 5. 2 small chronic lacunar infarcts in the bilateral cerebellum.
--- NOTE | 2024-04-22 16:00 | MR_ITS ---
WS: [email or web address] MRA HEAD TECHNIQUE: Axial 3-D TOF images obtained with axial images and axial, sagittal, and coronal 2-D refor matted images. CLINICAL INFORMATION: R25.1 - Tremor, unspecified COMPARISON: None. FINDINGS: Distal vertebral arteries are patent. Basilar artery is patent. Normal vascularity to the WEED ERADICATOR territo ry bilaterally. Persistent LEFT WEED ERADICATOR. 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 Both ICAs are patent at the skull base. Normal vascularity to the LUIS ANGEL and MCA territories bilaterally . No evidence of flow-limiting stenosis MR/MR angio head wo con [id number] IMPRESSION: 1. No evidence of flow-limiting stenosis. 2. Persistent LEFT WEED ERADICATOR. 3. 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
== END 2024-04-22 14:31 | disposition home or self-care (01) ==
PROVIDERS: PCP Nurse Practitioner Family; Visit Provider Psychiatry & Neurology Neurology
DX: R25.1 Tremor, unspecified (principal); I63.81 Other cerebral infarction due to occlusion or stenosis of small artery; G46.2 Posterior cerebral artery syndrome
CPT/HCPCS: 70544; 70548; 70553; A9577

== ENCOUNTER → 2024-06-08 14:26 | Outpatient (BNVA) | payer OTHER, MEDICAID, SELFPAY | PROVIDERS: PCP Nurse Practitioner Family; Visit Provider Psychiatry & Neurology Neurology | DX: G25.0 Essential tremor (principal); R51.9 Headache, unspecified; I48.91 Unspecified atrial fibrillation; Z79.01 Long term (current) use of anticoagulants | CPT/HCPCS: 99212 ==

== ENCOUNTER 2024-09-21 15:10 | Outpatient (CLI) | payer OTHER, SELFPAY ==
--- NOTE | 2024-09-21 15:15 | MM_ITS ---
WS: [email or web address] BILATERAL 3D TOMOSYNTHESIS DIGITAL SCREENING MAMMOGRAPHY WITH CAD CLINICAL INFORMATION: SCREENING HISTORY: Screening mammogram. No current complaints. COMPARISON: 2020 TECHNIQUE: Bilateral CC and MLO views. FINDINGS: The breasts are composed of heterogeneous fibroglandular density tissue, which can limit the detectio n of small underlying mass lesions. No suspicious mass, asymmetry, calcifications, or architectural d istortion. No evidence of malignancy. Dystrophic calcifications LEFT breast. Vascular calcifications. MM/MM [facility] tomosynthesis [id number] IMPRESSION: DENSITY: The breasts are heterogeneously dense, which may obscure small masses. BI-RADS: 2 - Benign FOLLOW UP: 1 Year Follow-up Recommend return to annual screening mammography.
== END 2024-09-21 15:11 | disposition home or self-care (01) ==
LOC: RAD 15:12
PROVIDERS: PCP Nurse Practitioner Family; Visit Provider Nurse Practitioner Family
DX: Z12.31 Encounter for screening mammogram for malignant neoplasm of breast (principal); R92.333 Mammographic heterogeneous density, bilateral breasts; R92.1 Mammographic calcification found on diagnostic imaging of breast
CPT/HCPCS: 77063; 77067

== ENCOUNTER → 2024-10-06 13:30 | Outpatient (BNVA) | payer OTHER, SELFPAY | PROVIDERS: PCP Nurse Practitioner Family; Visit Provider Psychiatry & Neurology Neurology | DX: R25.1 Tremor, unspecified (principal); R51.9 Headache, unspecified; M17.0 Bilateral primary osteoarthritis of knee; I48.91 Unspecified atrial fibrillation; Z79.01 Long term (current) use of anticoagulants | CPT/HCPCS: 99212; 99213 ==